=== PATIENT | female | born 1960 | race Two or more races ===

== ENCOUNTER 2020-07-25 08:16 | Outpatient (REF) | payer OTHER, SELFPAY ==
[2020-07-25 08:43] LABS: MANUAL DIFF FLAG NO
[2020-07-25 08:49] LABS: Basophils Percent Auto 0.2 % (0-2); Eosinophils Absolute Auto 0.1 X10*3/uL (0.0-0.4); Eosinophils Percent Auto 1.6 % (0-4); Hematocrit 39.6 % (37-47); Hemoglobin 12.4 g/dl (12.0-16.0); Imm Gran Abs Auto 0.01 X10*3/uL (0.00-0.03); Imm Gran Pct Auto 0.2 % (0.0-0.4); Lymphocytes Absolute Auto 1.7 X10*3/uL (1.2-4.9); Lymphocytes Percent Auto 29.7 % (20-40); Mean Corpuscular HGB Conc 31.3 g/dl (31.0-35.0); Mean Corpuscular Hemoglobin 25.8 pg (27.0-33.0); Mean Corpuscular Volume 82.3 fL (80-98); Monocytes Absolute Auto 0.4 X10*3/uL (0.1-1.2); Monocytes Percent Auto 6.3 % (2-11); Neutrophils Absolute Auto 3.6 X10*3/uL (2.0-8.3); Platelet Count 236 X10*3/uL (160-400); Red Blood Count 4.81 X10*6/uL (4.20-5.50); Red Cell Distribution Width 12.8 % (11.0-16.0); White Blood Count 5.7 X10*3/uL (4.8-10.8)
[2020-07-25 08:52] LABS: Glucose Urine UA NEG (NEG); Leukocyte Esterase Urine NEG (NEG); Nitrite Urine NEG (NEG); PH 5.5 (5.0-8.0); Specific Gravity - Urine >= 1.030 (1.005-1.025); Urine Blood NEG (NEG); Urine Ketones NEG (NEG); Urine Protein NEG (NEG-TRACE)
[2020-07-25 08:58] LABS: Appearance Urine CLEAR; Color Urine YELLOW; Estimated Average Glucose 154 mg/dL
[2020-07-25 09:01] LABS: RBC Urine 0 /HPF (0); Squamous Epithelial Cell Urine TRACE /LPF; WBC Urine 0 /HPF (0-4)
[2020-07-25 09:11] LABS: Alanine Aminotransferase 16 U/L (0-31); Albumin Level 4.5 g/dL (3.5-5.0); Alkaline Phosphatase 96 U/L (39-117); Anion Gap 13 (12-20); Aspartate Amino Transferase 14 U/L (5-31); Bilirubin Total 0.5 mg/dL (0.0-1.0); Blood Urea Nitrogen 18 mg/dL (9-16); Calcium 9.5 mg/dL (8.4-10.2); Carbon Dioxide 29 mmol/L (22-29); Chloride 103 mmol/L (96-108); Cholesterol 188 mg/dL; Estimated Glomerular Filt Rate > 60; Glucose Fasting 142 mg/dL (60-99); HDL Cholesterol 61 mg/dL; LDL Cholesterol Calculated 113 mg/dl; Potassium 4.1 mmol/l (3.3-5.1); Sodium 141 mmol/L (135-145); Total Protein 7.8 g/dL (6.5-8.0); Triglycerides 74 mg/dL
[2020-07-25 09:14] LABS: Creatinine Urine 119.98 mg/dL; Microalbum/Creatinine Ratio Ur 57.5 ug/mg cr
[2020-07-25 09:34] LABS: TSH reflex Free T4 0.29 mIU/mL (0.32-4.0)
[2020-07-25 10:46] LABS: Free T4 (Free Thyroxine) 1.27 ng/dL (0.71-1.85)
== END 2020-07-25 08:17 | disposition home or self-care (01) ==
LOC: HO.LAB 08:16
PROVIDERS: PCP Internal Medicine; Visit Provider Internal Medicine
DX: E78.5 Hyperlipidemia, unspecified (principal); E11.9 Type 2 diabetes mellitus without complications; I10 Essential (primary) hypertension; R80.9 Proteinuria, unspecified; R60.0 Localized edema; F32.9 Major depressive disorder, single episode, unspecified; E66.9 Obesity, unspecified
CPT/HCPCS: 36415; 80053; 80061; 81001; 82043; 83036; 84439; 84443; 85025

== ENCOUNTER 2020-08-20 09:54 | Outpatient (REF) | payer OTHER, SELFPAY ==
[2020-08-25 02:32] LABS: HPV mRNA E6/E7 rflx Not Detected (Not Detected)
== END 2020-08-20 09:55 | disposition home or self-care (01) ==
LOC: HO.LAB 09:54
PROVIDERS: PCP Internal Medicine; Visit Provider Obstetrics & Gynecology
DX: Z01.419 Encounter for gynecological examination (general) (routine) without abnormal findings (principal)
CPT/HCPCS: 36415; 87624; 88142

== ENCOUNTER 2020-09-17 10:43 | Outpatient (REF) | payer OTHER, SELFPAY ==
--- NOTE | 2020-09-17 11:09 | XR_ITS ---
EXAMINATION: XR KNEE, BILATERAL XR KNEE, LEFT CLINICAL INFORMATION: Pain in the left knee COMPARISON: 09/18/2017 TECHNIQUE: AP standing view of both knees. Lateral and sunrise views of the left knee. FINDINGS: Left knee: No fracture or subluxation. Compartmental joint spaces are maintained. No joint effusion. The soft tissues are unremarkable. Right knee: On this frontal view there is no fracture or subluxation. Medial and lateral compartmental joint spaces are maintained. The soft tissues are unremarkable. XR/XR knee LT 2V IMPRESSION: Unremarkable appearance of both knees.
--- NOTE | 2020-09-17 11:09 | XR_ITS ---
EXAMINATION: XR KNEE, BILATERAL XR KNEE, LEFT CLINICAL INFORMATION: Pain in the left knee COMPARISON: 09/18/2017 TECHNIQUE: AP standing view of both knees. Lateral and sunrise views of the left knee. FINDINGS: Left knee: No fracture or subluxation. Compartmental joint spaces are maintained. No joint effusion. The soft tissues are unremarkable. Right knee: On this frontal view there is no fracture or subluxation. Medial and lateral compartmental joint spaces are maintained. The soft tissues are unremarkable. XR/XR knee standing BI IMPRESSION: Unremarkable appearance of both knees.
== END 2020-09-17 10:44 | disposition home or self-care (01) ==
LOC: HO.HOSX 10:43
PROVIDERS: PCP Internal Medicine; Visit Provider Physician Assistant
DX: M25.562 Pain in left knee (principal)
CPT/HCPCS: 73560; 73565

== ENCOUNTER 2020-10-19 15:11 | Outpatient (REF) | payer OTHER, SELFPAY ==
--- NOTE | ~2020-10-19 | MM_ITS ---
EXAMINATION: MM SCREENING DIGITAL BREAST TOMOSYNTHESIS, BILATERAL CLINICAL INFORMATION: Screening. Asymptomatic. The lifetime risk of breast cancer based on the Tyrer-Cuzick Model is 6%. COMPARISON: Mammography: 10/14/2019, 10/08/2018, 08/22/2017 TECHNIQUE: Digital breast tomosynthesis is performed in both the craniocaudal and mediolateral oblique views along with computer-aided detection (CAD). Synthesized 2D images are generated from the tomosynthesis. Additional exaggerated medial left CC view is provided. FINDINGS: There are scattered areas of fibroglandular density (ACR BI-RADS breast composition Category b). There are no significant masses, abnormal calcifications, or other abnormalities. Parenchymal pattern is similar to prior studies. No developing density. Mild prominence right draining vein, stable. The axilla and skin contours are unremarkable. MM/MM tomosynthesis screening BI IMPRESSION: No significant changes from prior studies. ASSESSMENT: BI-RADS 2: Benign RECOMMENDATION: Routine annual mammography screening. This patient's information was entered into a reminder system with a target due date for their next mammogram.
== END 2020-10-19 15:12 | disposition home or self-care (01) ==
LOC: HO.MAMMO 15:11
PROVIDERS: PCP Internal Medicine; Visit Provider Internal Medicine
DX: Z12.31 Encounter for screening mammogram for malignant neoplasm of breast (principal)
CPT/HCPCS: 77063; 77067

== ENCOUNTER 2020-12-12 07:18 | Outpatient (REF) | payer OTHER, SELFPAY ==
[2020-12-12 08:16] LABS: MANUAL DIFF FLAG NO
[2020-12-12 08:20] LABS: Basophils Percent Auto 0.2 % (0-2); Eosinophils Absolute Auto 0.1 X10*3/uL (0.0-0.4); Eosinophils Percent Auto 2.1 % (0-4); Hemoglobin 11.9 g/dl (12.0-16.0); Imm Gran Abs Auto 0.01 X10*3/uL (0.00-0.03); Imm Gran Pct Auto 0.2 % (0.0-0.4); Lymphocytes Absolute Auto 1.6 X10*3/uL (1.2-4.9); Lymphocytes Percent Auto 31.5 % (20-40); Mean Corpuscular HGB Conc 31.3 g/dl (31.0-35.0); Mean Corpuscular Hemoglobin 25.8 pg (27.0-33.0); Mean Corpuscular Volume 82.4 fL (80-98); Mean Platelet Volume 10.1 fL (9.4-12.3); Monocytes Absolute Auto 0.4 X10*3/uL (0.1-1.2); Monocytes Percent Auto 6.8 % (2-11); Neutrophils Absolute Auto 3.1 X10*3/uL (2.0-8.3); Neutrophils Percent Auto 59.2 % (45-73); Platelet Count 228 X10*3/uL (160-400); Red Blood Count 4.61 X10*6/uL (4.20-5.50); Red Cell Distribution Width 12.8 % (11.0-16.0); White Blood Count 5.2 X10*3/uL (4.8-10.8)
[2020-12-12 08:41] LABS: Glucose Urine UA NEG (NEG); Leukocyte Esterase Urine NEG (NEG); Nitrite Urine NEG (NEG); Specific Gravity - Urine 1.025 (1.005-1.025); Urine Blood NEG (NEG); Urine Ketones NEG (NEG); Urine Protein NEG (NEG-TRACE)
[2020-12-12 08:45] LABS: Alanine Aminotransferase 17 U/L (0-31); Albumin Level 4.4 g/dL (3.5-5.0); Alkaline Phosphatase 94 U/L (39-117); Anion Gap 17 (12-20); Aspartate Amino Transferase 16 U/L (5-31); Bilirubin Total 0.5 mg/dL (0.0-1.0); Blood Urea Nitrogen 18 mg/dL (9-16); Calcium 9.5 mg/dL (8.4-10.2); Carbon Dioxide 26 mmol/L (22-29); Chloride 104 mmol/L (96-108); Cholesterol 187 mg/dL; Estimated Glomerular Filt Rate > 60; Glucose Fasting 160 mg/dL (60-99); HDL Cholesterol 55 mg/dL; LDL Cholesterol Calculated 114 mg/dl; Potassium 4.5 mmol/L (3.3-5.1); Sodium 142 mmol/L (135-145); Total Protein 7.6 g/dL (6.5-8.0); Triglycerides 91 mg/dL
[2020-12-12 08:47] LABS: Appearance Urine CLEAR; Color Urine YELLOW
[2020-12-12 08:56] LABS: TSH reflex Free T4 0.36 uIU/mL (0.32-4.0)
[2020-12-12 09:08] LABS: Creatinine Urine 114.91 mg/dL; Microalbum/Creatinine Ratio Ur 25.2 ug/mg cr
== END 2020-12-12 07:19 | disposition home or self-care (01) ==
LOC: HO.LAB 07:18
PROVIDERS: PCP Internal Medicine; Visit Provider Internal Medicine
DX: I10 Essential (primary) hypertension (principal); E78.00 Pure hypercholesterolemia, unspecified; E11.9 Type 2 diabetes mellitus without complications; E66.9 Obesity, unspecified
CPT/HCPCS: 36415; 80053; 80061; 81003; 82043; 84443; 85025

== ENCOUNTER 2021-06-19 08:04 | Outpatient (REF) | payer OTHER, SELFPAY ==
[2021-06-19 08:13] LABS: MANUAL DIFF FLAG NO
[2021-06-19 09:36] LABS: Basophils Percent Auto 0.2 % (0-2); Eosinophils Absolute Auto 0.1 X10*3/uL (0.0-0.4); Eosinophils Percent Auto 1.8 % (0-4); Hematocrit 39.3 % (37.0-47.0); Hemoglobin 12.3 g/dl (12.0-16.0); Imm Gran Abs Auto 0.01 X10*3/uL (0.00-0.03); Imm Gran Pct Auto 0.2 % (0.0-0.4); Lymphocytes Absolute Auto 1.7 X10*3/uL (1.2-4.9); Lymphocytes Percent Auto 30.7 % (20-40); Mean Corpuscular HGB Conc 31.3 g/dl (31.0-35.0); Mean Corpuscular Hemoglobin 25.8 pg (27.0-33.0); Mean Corpuscular Volume 82.4 fL (80.0-98.0); Mean Platelet Volume 10.3 fL (9.4-12.3); Monocytes Absolute Auto 0.4 X10*3/uL (0.1-1.2); Monocytes Percent Auto 6.9 % (2-11); Neutrophils Absolute Auto 3.3 x10*3/uL (2.0-8.3); Neutrophils Percent Auto 60.2 % (45-73); Platelet Count 244 X10*3/uL (160-400); Red Blood Count 4.77 X10*6/uL (4.20-5.50); Red Cell Distribution Width 12.6 % (11.0-16.0); White Blood Count 5.5 X10*3/uL (4.8-10.8)
[2021-06-19 09:37] LABS: Appearance Urine CLEAR; Color Urine YELLOW; Glucose Urine UA NEG (NEG); Leukocyte Esterase Urine NEG (NEG); Nitrite Urine NEG (NEG); Specific Gravity - Urine >= 1.030 (1.005-1.025); Urine Blood NEG (NEG); Urine Ketones NEG (NEG); Urine Protein TRACE MG/DL (NEG-TRACE)
[2021-06-19 09:40] LABS: Estimated Average Glucose 177 mg/dL; Hemoglobin A1C 198.1791 umol/L; Hemoglobin A1c % 7.8 %
[2021-06-19 09:46] LABS: Alanine Aminotransferase 21 U/L (0-31); Albumin Level 4.5 g/dL (3.5-5.0); Alkaline Phosphatase 93 U/L (39-117); Anion Gap 11 (12-20); Aspartate Amino Transferase 16 U/L (5-31); Bilirubin Total 0.4 mg/dL (0.0-1.0); Blood Urea Nitrogen 16 mg/dL (9-16); Calcium 9.4 mg/dL (8.4-10.2); Carbon Dioxide 30 mmol/L (22-29); Chloride 104 mmol/L (96-108); Cholesterol 191 mg/dL; Estimated Glomerular Filt Rate > 60; Glucose Fasting 153 mg/dL (60-99); HDL Cholesterol 56 mg/dL; LDL Cholesterol Calculated 113 mg/dl; Potassium 4.1 mmol/L (3.3-5.1); Sodium 141 mmol/L (135-145); Total Protein 7.6 g/dL (6.5-8.0); Triglycerides 114 mg/dL
[2021-06-19 09:52] LABS: Creatinine Urine 161.31 mg/dL; Microalbum/Creatinine Ratio Ur 76.8 ug/mg cr
[2021-06-19 10:04] LABS: TSH reflex Free T4 0.49 uIU/mL (0.32-4.0)
== END 2021-06-19 08:05 | disposition home or self-care (01) ==
LOC: HO.LAB 08:04
PROVIDERS: PCP Internal Medicine; Visit Provider Internal Medicine
DX: E11.9 Type 2 diabetes mellitus without complications (principal); E78.00 Pure hypercholesterolemia, unspecified; I10 Essential (primary) hypertension; E66.9 Obesity, unspecified
CPT/HCPCS: 36415; 80053; 80061; 81003; 82043; 83036; 84443; 85025

== ENCOUNTER → 2021-09-22 08:10 | Outpatient (BNVA) | payer OTHER, SELFPAY | PROVIDERS: PCP Internal Medicine; Visit Provider Obstetrics & Gynecology ==

== ENCOUNTER 2021-10-25 12:47 | Outpatient (REF) | payer OTHER, SELFPAY ==
--- NOTE | ~2021-10-25 | MM_ITS ---
EXAMINATION: MM SCREENING DIGITAL BREAST TOMOSYNTHESIS, BILATERAL CLINICAL INFORMATION: Screening. Asymptomatic. The lifetime risk of breast cancer based on the Tyrer-Cuzick Model is 9%. COMPARISON: Mammography: 10/19/2020, 11/01/2019, 10/08/2018 TECHNIQUE: Digital breast tomosynthesis is performed in both the craniocaudal and mediolateral oblique views along with computer-aided detection (CAD). Synthesized 2D images are generated from the tomosynthesis. FINDINGS: There are scattered areas of fibroglandular density (ACR BI-RADS breast composition Category b). There are no significant masses, abnormal calcifications, or other abnormalities. Parenchymal pattern is similar to prior studies. No developing density. Mildly prominent right screening brain stable. The axilla are unremarkable. MM/MM tomosynthesis screening BI IMPRESSION: No mammographic evidence of malignancy. ASSESSMENT: BI-RADS 2: Benign RECOMMENDATION: Routine annual mammography screening. This patient's information was entered into a reminder system with a target due date for their next mammogram.
== END 2021-10-25 12:48 | disposition home or self-care (01) ==
LOC: HO.MAMMO 12:47
PROVIDERS: Visit Provider Internal Medicine
DX: Z12.31 Encounter for screening mammogram for malignant neoplasm of breast (principal)
CPT/HCPCS: 77063; 77067

== ENCOUNTER → 2021-11-03 13:38 | Outpatient (BNVA) | payer OTHER, SELFPAY | PROVIDERS: PCP Internal Medicine; Visit Provider Physician Assistant | DX: M17.11 Unilateral primary osteoarthritis, right knee (principal) | CPT/HCPCS: 20610; J1040 ==

== ENCOUNTER 2021-12-11 07:44 | Outpatient (REF) | payer OTHER, SELFPAY ==
[2021-12-11 08:06] LABS: MANUAL DIFF FLAG NO
[2021-12-11 08:35] LABS: Appearance Urine CLEAR; Color Urine YELLOW; Glucose Urine UA NEG (NEG); Leukocyte Esterase Urine NEG (NEG); Nitrite Urine NEG (NEG); Specific Gravity - Urine >= 1.030 (1.005-1.025); UACC Culture Trigger NO; Urine Blood NEG (NEG); Urine Ketones NEG (NEG); Urine Protein 2+ MG/DL (NEG-TRACE)
[2021-12-11 08:40] LABS: Basophils Percent Auto 0.2 % (0-2); Eosinophils Absolute Auto 0.1 X10*3/uL (0.0-0.4); Eosinophils Percent Auto 1.5 % (0-4); Hematocrit 39.4 % (37.0-47.0); Hemoglobin 12.6 g/dl (12.0-16.0); Imm Gran Abs Auto 0.01 X10*3/uL (0.00-0.03); Imm Gran Pct Auto 0.2 % (0.0-0.4); Lymphocytes Absolute Auto 1.7 X10*3/uL (1.2-4.9); Lymphocytes Percent Auto 28.7 % (20-40); Mean Corpuscular Volume 81.2 fL (80.0-98.0); Mean Platelet Volume 9.9 fL (9.4-12.3); Monocytes Absolute Auto 0.4 X10*3/uL (0.1-1.2); Monocytes Percent Auto 6.5 % (2-11); Neutrophils Absolute Auto 3.7 x10*3/uL (2.0-8.3); Neutrophils Percent Auto 62.9 % (45-73); Platelet Count 244 X10*3/uL (160-400); Red Blood Count 4.85 X10*6/uL (4.20-5.50); Red Cell Distribution Width 12.9 % (11.0-16.0); White Blood Count 5.8 X10*3/uL (4.8-10.8)
[2021-12-11 09:20] LABS: Alanine Aminotransferase 19 U/L (0-31); Albumin Level 4.5 g/dL (3.5-5.0); Alkaline Phosphatase 99 U/L (39-117); Anion Gap 16 (12-20); Aspartate Amino Transferase 16 U/L (5-31); Bilirubin Total 0.7 mg/dL (0.0-1.0); Blood Urea Nitrogen 17 mg/dL (9-16); Calcium 10.1 mg/dL (8.4-10.2); Carbon Dioxide 28 mmol/L (22-29); Chloride 102 mmol/L (96-108); Cholesterol 206 mg/dL; Estimated Glomerular Filt Rate > 60; Glucose Fasting 169 mg/dL (60-99); HDL Cholesterol 63 mg/dL; LDL Cholesterol Calculated 125 mg/dl; Potassium 4.7 mmol/L (3.3-5.1); Sodium 141 mmol/L (135-145); Total Protein 7.8 g/dL (6.5-8.0); Triglycerides 94 mg/dL
[2021-12-11 09:25] LABS: RBC Urine 0-2 /HPF (0); UACC CULT YES
[2021-12-11 09:26] LABS: Mucus Urine 2+ /LPF; Renal Epithelial Cells Urine 1+ /LPF; Squamous Epithelial Cell Urine 2+ /LPF
[2021-12-11 09:28] LABS: Estimated Average Glucose 171 mg/dL; Hemoglobin A1c % 7.6 %
[2021-12-11 09:43] LABS: TSH reflex Free T4 0.34 uIU/mL (0.32-4.0); Vitamin D 25-OH Total 26.9 ng/mL (>30)
[2021-12-11 10:07] LABS: Creatinine Urine 232.14 mg/dL; Microalbum/Creatinine Ratio Ur 299.8 ug/mg cr
== END 2021-12-11 07:45 | disposition home or self-care (01) ==
LOC: HO.LAB 07:44
PROVIDERS: PCP Internal Medicine; Visit Provider Internal Medicine
DX: E11.9 Type 2 diabetes mellitus without complications (principal); E78.00 Pure hypercholesterolemia, unspecified; E55.9 Vitamin D deficiency, unspecified; I10 Essential (primary) hypertension
CPT/HCPCS: 36415; 80053; 80061; 81001; 82043; 82306; 83036; 84443; 85025; 87086

== ENCOUNTER 2022-04-23 07:33 | Outpatient (REF) | payer OTHER, SELFPAY ==
[2022-04-23 07:55] LABS: MANUAL DIFF FLAG NO
[2022-04-23 08:14] LABS: Basophils Percent Auto 0.2 % (0-2); Eosinophils Absolute Auto 0.1 X10*3/uL (0.0-0.4); Eosinophils Percent Auto 1.7 % (0-4); Hematocrit 38.2 % (37.0-47.0); Hemoglobin 12.4 g/dl (12.0-16.0); Imm Gran Abs Auto 0.01 X10*3/uL (0.00-0.03); Imm Gran Pct Auto 0.2 % (0.0-0.4); Lymphocytes Absolute Auto 1.5 X10*3/uL (1.2-4.9); Lymphocytes Percent Auto 28.1 % (20-40); Mean Corpuscular HGB Conc 32.5 g/dl (31.0-35.0); Mean Corpuscular Hemoglobin 26.2 pg (27.0-33.0); Mean Corpuscular Volume 80.6 fL (80.0-98.0); Mean Platelet Volume 9.9 fL (9.4-12.3); Monocytes Absolute Auto 0.3 X10*3/uL (0.1-1.2); Monocytes Percent Auto 6.4 % (2-11); Neutrophils Absolute Auto 3.4 x10*3/uL (2.0-8.3); Neutrophils Percent Auto 63.4 % (45-73); Platelet Count 233 X10*3/uL (160-400); Red Blood Count 4.74 X10*6/uL (4.20-5.50); Red Cell Distribution Width 12.8 % (11.0-16.0); White Blood Count 5.3 X10*3/uL (4.8-10.8)
[2022-04-23 08:47] LABS: Appearance Urine Clear; Color Urine Yellow; Glucose Urine UA Negative (Negative); Leukocyte Esterase Urine Negative (Negative); Nitrite Urine Negative (Negative); PH 5.5 (5.0-9.0); Specific Gravity - Urine 1.025 (1.005-1.025); Urine Blood Negative (Negative); Urine Ketones Trace mg/dL (Negative); Urine Protein 100 (2+) mg/dL (Neg-Trace)
[2022-04-23 08:49] LABS: Alanine Aminotransferase 22 U/L (0-31); Albumin Level 4.4 g/dL (3.5-5.0); Alkaline Phosphatase 93 U/L (39-117); Anion Gap 16 (12-20); Aspartate Amino Transferase 16 U/L (5-31); Bilirubin Total 0.5 mg/dL (0.0-1.0); Blood Urea Nitrogen 17 mg/dL (9-16); Calcium 9.7 mg/dL (8.4-10.2); Carbon Dioxide 27 mmol/L (22-29); Chloride 103 mmol/L (96-108); Cholesterol 189 mg/dL; Estimated Glomerular Filt Rate > 60; Glucose Fasting 182 mg/dL (60-99); HDL Cholesterol 56 mg/dL; LDL Cholesterol Calculated 113 mg/dl; Potassium 4.2 mmol/L (3.3-5.1); Sodium 142 mmol/L (135-145); Total Protein 7.6 g/dL (6.5-8.0); Triglycerides 104 mg/dL
[2022-04-23 08:52] LABS: Bacteria Urine None Seen (None Seen); Hyaline Casts Urine 0-2 /LPF (0-2); RBC Urine 0-2 /HPF (0-2); WBC Urine 0-5 /HPF (0-5)
[2022-04-23 09:11] LABS: TSH reflex Free T4 0.27 uIU/mL (0.32-4.0); Vitamin D 25-OH Total 30.5 ng/mL (>30)
[2022-04-23 09:18] LABS: Estimated Average Glucose 171 mg/dL; Hemoglobin A1c % 7.6 %
[2022-04-23 09:21] LABS: Creatinine Urine 214.12 mg/dL; Microalbum/Creatinine Ratio Ur 193.8 ug/mg cr
[2022-04-23 09:43] LABS: Free T4 (Free Thyroxine) 1.31 ng/dL (0.71-1.85)
== END 2022-04-23 07:34 | disposition home or self-care (01) ==
LOC: HO.LAB 07:33
PROVIDERS: PCP Internal Medicine; Visit Provider Internal Medicine
DX: I10 Essential (primary) hypertension (principal); E55.9 Vitamin D deficiency, unspecified; E78.00 Pure hypercholesterolemia, unspecified; E11.9 Type 2 diabetes mellitus without complications
CPT/HCPCS: 36415; 80053; 80061; 81001; 82043; 82306; 83036; 84439; 84443; 85025

== ENCOUNTER 2022-10-26 14:11 | Outpatient (REF) | payer OTHER, SELFPAY ==
--- NOTE | ~2022-10-26 | MM_ITS ---
EXAMINATION: MM SCREENING DIGITAL BREAST TOMOSYNTHESIS, BILATERAL CLINICAL INFORMATION: Screening. Asymptomatic. The lifetime risk of breast cancer based on the Tyrer-Cuzick Model is 5%. COMPARISON: Mammography: 10/25/2021, 10/19/2020, 10/14/2019 TECHNIQUE: Digital breast tomosynthesis is performed in both the craniocaudal and mediolateral oblique views along with computer-aided detection (CAD). Synthesized 2D images are generated from the tomosynthesis. FINDINGS: There are scattered areas of fibroglandular density (ACR BI-RADS breast composition Category b). There are no significant masses, abnormal calcifications, or other abnormalities. No architectural abnormality or developing density or significant change from prior studies. Probable small intramammary node node mid upper outer right breast again noted. The axilla and skin contours are unremarkable. MM/MM tomosynthesis screening BI IMPRESSION: No mammographic evidence of malignancy. ASSESSMENT: BI-RADS 2: Benign RECOMMENDATION: Routine annual mammography screening. This patient's information was entered into a reminder system with a target due date for their next mammogram.
== END 2022-10-26 14:12 | disposition home or self-care (01) ==
LOC: HO.MAMMO 14:11
PROVIDERS: PCP Internal Medicine; Visit Provider Internal Medicine
DX: Z12.31 Encounter for screening mammogram for malignant neoplasm of breast (principal)
CPT/HCPCS: 77063; 77067

== ENCOUNTER 2022-10-29 07:33 | Outpatient (REF) | payer OTHER, SELFPAY ==
[2022-10-29 08:06] LABS: MANUAL DIFF FLAG NO
[2022-10-29 08:48] LABS: Basophils Percent Auto 0.4 % (0-2); Eosinophils Absolute Auto 0.1 X10*3/uL (0.0-0.4); Eosinophils Percent Auto 1.7 % (0-4); Hematocrit 37.8 % (37.0-47.0); Hemoglobin 11.9 g/dl (12.0-16.0); Imm Gran Abs Auto 0.02 X10*3/uL (0.00-0.03); Imm Gran Pct Auto 0.4 % (0.0-0.4); Lymphocytes Absolute Auto 1.5 X10*3/uL (1.2-4.9); Lymphocytes Percent Auto 27.6 % (20-40); Mean Corpuscular HGB Conc 31.5 g/dl (31.0-35.0); Mean Corpuscular Hemoglobin 25.8 pg (27.0-33.0); Mean Corpuscular Volume 81.8 fL (80.0-98.0); Mean Platelet Volume 10.2 fL (9.4-12.3); Monocytes Absolute Auto 0.3 X10*3/uL (0.1-1.2); Monocytes Percent Auto 6.3 % (2-11); Neutrophils Absolute Auto 3.4 x10*3/uL (2.0-8.3); Neutrophils Percent Auto 63.6 % (45-73); Platelet Count 236 X10*3/uL (160-400); Red Blood Count 4.62 X10*6/uL (4.20-5.50); Red Cell Distribution Width 12.9 % (11.0-16.0); White Blood Count 5.4 X10*3/uL (4.8-10.8)
[2022-10-29 09:02] LABS: Appearance Urine Clear; Color Urine Yellow; Glucose Urine UA Negative (Negative); Leukocyte Esterase Urine Negative (Negative); Nitrite Urine Negative (Negative); PH 5.5 (5.0-9.0); UMIC TRIGGER UACC YES; Urine Blood Negative (Negative); Urine Ketones Negative (Negative); Urine Protein 30 (1+) mg/dL (Neg-Trace)
[2022-10-29 09:08] LABS: Bacteria Urine None Seen (None Seen); Hyaline Casts Urine 0-2 /LPF (0-2); RBC Urine 0-2 /HPF (0-2); Squamous Epithelial Cell Urine 0-2 /HPF (0-2); WBC Urine 0-5 /HPF (0-5)
[2022-10-29 09:16] LABS: Estimated Average Glucose 194 mg/dL; Hemoglobin A1c % 8.4 %
[2022-10-29 09:27] LABS: Creatinine Urine 114.75 mg/dL
[2022-10-29 09:29] LABS: Alanine Aminotransferase 25 U/L (0-31); Albumin Level 4.4 g/dL (3.5-5.0); Alkaline Phosphatase 89 U/L (39-117); Anion Gap 17 (12-20); Aspartate Amino Transferase 18 U/L (5-31); Bilirubin Total 0.5 mg/dL (0.0-1.0); Blood Urea Nitrogen 18 mg/dL (9-16); Calcium 9.4 mg/dL (8.4-10.2); Carbon Dioxide 25 mmol/L (22-29); Chloride 104 mmol/L (96-108); Cholesterol 187 mg/dL; Estimated Glomerular Filt Rate > 60; Glucose Fasting 187 mg/dL (60-99); HDL Cholesterol 55 mg/dL; LDL Cholesterol Calculated 113 mg/dl; Potassium 4.3 mmol/L (3.3-5.1); Sodium 142 mmol/L (135-145); Total Protein 7.4 g/dL (6.5-8.0); Triglycerides 95 mg/dL
[2022-10-29 09:37] LABS: TSH reflex Free T4 0.24 uIU/mL (0.32-4.0); Vitamin D 25-OH Total 40.2 ng/mL (>30)
[2022-10-29 10:08] LABS: Free T4 (Free Thyroxine) 1.11 ng/dL (0.71-1.85)
== END 2022-10-29 07:34 | disposition home or self-care (01) ==
LOC: HO.LAB 07:33
PROVIDERS: PCP Internal Medicine; Visit Provider Internal Medicine
DX: E78.00 Pure hypercholesterolemia, unspecified (principal); I10 Essential (primary) hypertension; E11.9 Type 2 diabetes mellitus without complications; E55.9 Vitamin D deficiency, unspecified
CPT/HCPCS: 36415; 80053; 80061; 81001; 81003; 82043; 82306; 83036; 84439; 84443; 85025

== ENCOUNTER → 2022-11-30 09:17 | Outpatient (BNVA) | payer OTHER, SELFPAY | PROVIDERS: PCP Internal Medicine; Visit Provider Obstetrics & Gynecology | DX: Z13.89 Encounter for screening for other disorder (principal) ==

== ENCOUNTER 2023-04-14 08:17 | Outpatient (REF) | payer OTHER, SELFPAY ==
[2023-04-14 08:30] LABS: MANUAL DIFF FLAG NO
[2023-04-14 08:35] LABS: Basophils Percent Auto 0.4 % (0-2); Eosinophils Absolute Auto 0.1 X10*3/uL (0.0-0.4); Eosinophils Percent Auto 1.5 % (0-4); Hematocrit 38.1 % (37.0-47.0); Hemoglobin 12.1 g/dl (12.0-16.0); Imm Gran Abs Auto 0.01 X10*3/uL (0.00-0.03); Imm Gran Pct Auto 0.2 % (0.0-0.4); Lymphocytes Absolute Auto 1.5 X10*3/uL (1.2-4.9); Lymphocytes Percent Auto 27.3 % (20-40); Mean Corpuscular HGB Conc 31.8 g/dl (31.0-35.0); Mean Corpuscular Volume 81.9 fL (80.0-98.0); Mean Platelet Volume 9.9 fL (9.4-12.3); Monocytes Absolute Auto 0.4 X10*3/uL (0.1-1.2); Monocytes Percent Auto 6.6 % (2-11); Neutrophils Absolute Auto 3.5 x10*3/uL (2.0-8.3); Platelet Count 201 X10*3/uL (160-400); Red Blood Count 4.65 X10*6/uL (4.20-5.50); Red Cell Distribution Width 12.9 % (11.0-16.0); White Blood Count 5.5 X10*3/uL (4.8-10.8)
[2023-04-14 08:42] LABS: Estimated Average Glucose 183 mg/dL
[2023-04-14 10:02] LABS: Appearance Urine Clear; Color Urine Yellow; Glucose Urine UA Negative (Negative); Leukocyte Esterase Urine Negative (Negative); Nitrite Urine Negative (Negative); PH 5.5 (5.0-9.0); Specific Gravity - Urine 1.025 (1.005-1.025); UMIC TRIGGER UACC YES; Urine Blood Negative (Negative); Urine Ketones Negative (Negative); Urine Protein 30 (1+) mg/dL (Neg-Trace)
[2023-04-14 10:05] LABS: Bacteria Urine None Seen (None Seen); Hyaline Casts Urine 0-2 /LPF (0-2); RBC Urine 0-2 /HPF (0-2); WBC Urine 0-5 /HPF (0-5)
[2023-04-14 10:34] LABS: Alanine Aminotransferase 24 U/L (0-31); Albumin Level 4.4 g/dL (3.5-5.0); Alkaline Phosphatase 87 U/L (39-117); Anion Gap 15 (12-20); Aspartate Amino Transferase 19 U/L (5-31); Bilirubin Total 0.4 mg/dL (0.0-1.0); Blood Urea Nitrogen 16 mg/dL (9-16); Calcium 9.9 mg/dL (8.4-10.2); Carbon Dioxide 24 mmol/L (22-29); Chloride 105 mmol/L (96-108); Cholesterol 171 mg/dL (<200); Estimated Glomerular Filt Rate > 60; Glucose Fasting 187 mg/dL (60-99); HDL Cholesterol 53 mg/dL (>40); LDL Cholesterol Calculated 94 mg/dL (<100); Potassium 4.3 mmol/L (3.3-5.1); Sodium 140 mmol/L (135-145); Total Protein 7.8 g/dL (6.5-8.0); Triglycerides 123 mg/dL (<150)
[2023-04-14 10:41] LABS: TSH reflex Free T4 0.42 uIU/mL (0.32-4.0); Vitamin D 25-OH Total 30.5 ng/mL (>30)
[2023-04-14 10:52] LABS: Microalbum/Creatinine Ratio Ur 122.4 ug/mg cr (<30)
== END 2023-04-14 08:18 | disposition home or self-care (01) ==
LOC: HO.LAB 08:17
PROVIDERS: PCP Internal Medicine; Visit Provider Internal Medicine
DX: I10 Essential (primary) hypertension (principal); E78.00 Pure hypercholesterolemia, unspecified; E55.9 Vitamin D deficiency, unspecified; E11.9 Type 2 diabetes mellitus without complications
CPT/HCPCS: 36415; 80053; 80061; 81001; 81003; 82043; 82306; 82570; 83036; 84443; 85025

== ENCOUNTER 2023-04-19 14:51 | Outpatient (AMB) | payer OTHER, SELFPAY ==
[2023-04-19 15:16] VITALS: BP 122/80; PULSE 81; O2SAT 96; BMI 32.0
--- NOTE | 2023-04-19 15:16 | MHC.PC.OV ---
Vital Signs 04/19/23 15:16 Height 5 ft 5 in Weight 192 lb 4 oz BMI 32.0 BP 122/80 Blood Pressure Location Lt brachial Position Sitting Pulse 81 Pulse Source Pulse Oximeter Pulse Oximetry (%) 96 Oxygen Delivery Method Room Air Intake Visit Reasons: DM, HTN, hyperlipidemia Documentation Supervisor Required: No Accompanied by: Self / Same As Patient Allergies lisinopril Allergy (Unknown, Verified 04/19/23 16:20) severe coughing linagliptin [From Tradjenta] Adverse Reaction (Severe, Verified 04/19/23 16:21) hives/blisters, chest pains, diarrhea Medication List - Last Reconciled 04/19/23 by Herson Healy MD atorvastatin 40 mg PO BEDTIME 90 days losartan 25 mg PO DAILY 90 days metformin ER 1,000 mg (2 x 500 mg) PO BID 90 days sertraline 100 mg PO DAILY 90 days Tobacco use date assessed: 04/19/23 Dental Screening Dental Screen Date: 04/19/23 Did you have a dental visit in the last 12 months?: No Did you have a dental problem in the last 6 months where you did not have access to dental care?: No Was dental information given to patient?: No HPI DM, HTN, hyperlipidemia HPI Details Patient comes in today for her follow up visit States that she currently feels okay Relates that she developed side effects from the last diabetes Rx that we prescribed for her (had diarrhea, chest tight, hives/blisters while on Tradjenta) and she stopped taking Tradjenta after being on it for a couple of weeks Notes that all of her side effects gradually cleared up once she stopped taking her Tradjenta States that she has been trying hard to watch her diet and eating better/healthier since She denies any headaches or dizziness Denies any chest pains, no SOB No nausea/vomiting, no abdominal pain No change in bowel habits noted Needs all of her Rx refilled Had her follow up labs done a few days ago - to discuss her results [facility] Medical History Benign essential hypertension Depression Diabetes mellitus Lichen sclerosus Obesity (BMI 30-39.9) Primary osteoarthritis of knee Pure hypercholesterolemia Surgical History History of laparoscopic cholecystectomy Family History Father Diabetes Mother Hypertension Diabetes Social History Housing: Apartment Alcohol intake: never Patient Tobacco Use Status: Never used Tobacco e-Cigarette/Vaping Use: Never Used Second Hand Smoke Exposure: No service: No Current occupational status: employed Cognitive needs: No Hearing needs: No Vision needs: Yes Female Reproductive History Menstrual Age of Menarche: 15 Questionnaire PHQ-9 Over the last 2 weeks, how often have you been bothered by any of the following problems? 1. Little interest or pleasure in doing things: not at all 2. Feeling down, depressed, or hopeless: not at all 3. Trouble falling or staying asleep, or sleeping too much: not at all 4. Feeling tired or having little energy: not at all 5. Poor appetite or overeating: not at all 6. Feeling bad about yourself - or that you are a failure or have let yourself or your family down: not at all 7. Trouble concentrating on things, such as reading the newspaper or watching television: not at all 8. Moving or speaking so slowly that other people could have noticed. Or the opposite - being so fidgety or restless that you have been moving around a lot more than usual: not at all 9. Thoughts that you would be better off or of hurting yourself in some way: not at all Total score: 0 Depression Screening Interpretation: Negative 23884 - PHQ-9 Billing: Yes Source: Developed by Drs. León Lawton, Charmaine Humphries, Yefri Laird and colleagues, with an educational fitz from [employer]. Thrive Questionnaire Date Thrive assessed: 04/19/23 I am a: Patient What is your living situation today?: I have a steady place to live Within the past 12 months, did the food you bought not last and you didn't have the money to get more?: Never true Within the past 12 months, did you worry whether your food would run out before you got money to buy more?: Never true Do you have trouble paying for medicines?: No Do you have trouble getting transportation to medical appointments?: No Do you have trouble paying your heating and electricity bill?: No Do you have trouble taking care of your child, family member or friend?: No Do you have trouble with day-to-day activities such as bathing, preparing meals, shopping, managing finances, etc.?: No Are you currently unemployed and looking for a job?: No Are you interested in more education?: No Please select the resources that you would like help with: None Currently or been in a relationship where the following occur: no concerns reported AUDIT C Alcohol Use Questionnaire (AUDIT-C) 1. How often do you have a drink containing alcohol?: Never 3. How often do you have six or more drinks on one occasion?: Never Total Score: 0 Score Reviewed/Action Taken: Yes TAMANNA-7 AMB Questionnaire TAMANNA-7 Date TAMANNA - 7 assessed: 04/19/23 Feeling nervous, anxious, or on edge: 0 = Not at all Not being able to stop or control worryin = Not at all Worrying too much about different things: 0 = Not at all Trouble relaxin = Not at all Being so restless that it is hard to sit still: 0 = Not at all Becoming easily annoyed or irritable: 0 = Not at all Feeling afraid as if something awful might happen: 0 = Not at all Total TAMANNA-7 score (0-4 normal; 5-9 mild; 10-14 moderate; 15-21 severe): 0 Source: Developed by Drs. León Lawton, Charmaine Humphries, Yefri Laird and colleagues, with an educational fitz from [employer]. Review of Systems Const Denies chills, Denies fatigue, Denies fever(s) and Denies headache(s) ENT Denies dysphagia, Denies dizziness, Denies otalgia, Denies headache(s), Denies neck pain, Denies odynophagia and Denies sore throat Card Denies chest pain, Denies palpitations and Denies dyspnea Resp Denies cough and Denies dyspnea GI Denies abdominal pain, Denies constipation, Denies dysphagia, Denies heartburn, Denies diarrhea, Denies nausea, Denies odynophagia and Denies vomiting Denies difficulty voiding, Denies nocturia and Denies dysuria Musc Denies back pain, Denies arthralgias and Denies neck pain Neuro Denies dizziness and Denies headache(s) Endo Denies fatigue and Denies palpitations Physical exam (Primary Care) Vital Signs: Last Vital Signs Pulse 81 04/19/23 15:16 BP 122/80 04/19/23 15:16 Pulse Ox 96 04/19/23 15:16 Oxygen Delivery Method Room Air 04/19/23 15:16 BMI result Body Mass Index 32.0 Tobacco/Smoking Status: Tobacco use Status Tobacco use date assessed 04/19/23 04/19/23 15:22 Patient Tobacco Use Status Never used Tobacco 04/19/23 15:22 e-Cigarette/Vaping Use Never Used 04/19/23 15:22 PHQ-9: PHQ-9 Score PHQ-9: Total score 0 04/19/23 15:24 Depression Screening Interpretation: Negative Thrive Assessment: Date of Thrive Assessment Date Thrive assessed 04/19/23 04/19/23 15:22 Currently or been in a relationship where the following occur: no concerns reported Const General: no acute distress and alert HENMT Ears: TM's normal bilaterally and EAC's normal Throat: Yes posterior oropharynx normal and Yes tonsils normal (no TP congestion noted) Neck Neck: Yes no lymphadenopathy and Yes supple Resp Auscultation: clear to auscultation bilaterally, no rales and no wheezes Cardio Rate: regular rate Rhythm: regular rhythm Heart sounds: no murmurs GI Palpation (GI): Soft to palpation and nontender Auscultation: normal bowel sounds Back/Spine/Pelvis Thoracic/Lumbar Spine: thoracic and lumbar spine normal to inspection Skin Rashes: no rashes Extrem General: Yes no clubbing, cyanosis or edema Results Reviewed Results Reviewed: Laboratory Tests 04/14/23 04/14/23 04/14/23 08:27 08:27 08:28 WBC 5.5 Hgb 12.1 Hct 38.1 Plt Count 201 Sodium Potassium Creatinine Estimated GFR Fasting Glucose Hemoglobin A1c % Calcium AST ALT Triglycerides Cholesterol LDL Cholesterol, Calc HDL Cholesterol 25-OH Vitamin D Total TSH Ur Specific [place] 1.025 Urine Protein 30 (1+) H Urine Glucose (UA) Negative Urine Blood Negative Microalb/Creat Ratio 122.4 H 04/14/23 04/14/23 08:28 08:28 WBC Hgb Hct Plt Count Sodium 140 Potassium 4.3 Creatinine 0.82 Estimated GFR > 60 Fasting Glucose 187 H Hemoglobin A1c % 8.0 H Calcium 9.9 AST 19 ALT 24 Triglycerides 123 Cholesterol 171 LDL Cholesterol, Calc 94 HDL Cholesterol 53 25-OH Vitamin D Total 30.5 TSH 0.42 Ur Specific [place] Urine Protein Urine Glucose (UA) Urine Blood Microalb/Creat Ratio Assessment and Plan Assessment & Plan (1) Diabetes mellitus: Code(s): E11.9 - Type 2 diabetes mellitus without complications Qualifiers: Diabetes mellitus type: type 2 Diabetes mellitus nursing home insulin use: without nursing home use Diabetes mellitus complication status: without complication Qualified Code(s): E11.9 - Type 2 diabetes mellitus without complications Plan: HgbA1c is at 8.0% on her labs done a few days ago (was at 8.4% a few months ago) - goal is < 7.0% Reinforced diabetic diet Continue Metformin ER 500 mg 2 tablets BID She was started on Tradjenta 5 mg Q AM a few months ago but developed side effects from the Rx (hives, chest pains, diarrhea) and she ended up stopping it after a couple of weeks; states that all of the aforementioned side effects gradually cleared up with discontinuation of the Rx She could also not tolerate Januvia 50 mg QD in the past - blood sugar kept dropping too low Will try starting her for now on Pioglitazone 15 mg QD (2) Pure hypercholesterolemia: Code(s): E78.00 - Pure hypercholesterolemia, unspecified Plan: Results of her labs done a few days ago reviewed and discussed with patient - advised that her cholesterol levels have improved significantly from previous Reinforced low cholesterol diet Continue Atorvastatin 40 mg QD Will recheck her labs and fasting lipids in 3 months for follow-up (3) Benign essential hypertension: Code(s): I10 - Essential (primary) hypertension Plan: Reinforced low sodium diet -? goal is systolic BP of at least 120 to 130 mm or less Continue Losartan 25 mg QD (4) Depression: Code(s): F32.9 - Major depressive disorder, single episode, unspecified Qualifiers: Depression Type: major depressive disorder Major depression recurrence: recurrent Active/Remission status: currently active Major depression episode severity: unspecified Qualified Code(s): F33.9 - Major depressive disorder, recurrent, unspecified Plan: Continue Sertraline 100 mg QD Follow-up with Psychiatry as scheduled -? was seeing her therapist via telehealth visits lately and advised that as she has been stable on her medication for years, she can just see her therapist only as needed from now on and can continue to just get her Rx refilled by her PCP (5) Obesity (BMI 30-39.9): Code(s): E66.9 - Obesity, unspecified Plan: Reinforced diet/exercise as tolerated/lose weight Plan Follow up in 3 months Orders: Orders Complete Blood Count Auto Diff 3 Months I10 - Essential (primary) hypertension Comprehensive [place]. Panel Fast 3 Months E78.00 - Pure hypercholesterolemia, unspecified Lipid Panel 3 Months E78.00 - Pure hypercholesterolemia, unspecified Microalbumin, Random (w Creat) 3 Months E11.9 - Type 2 diabetes mellitus without complications Hemoglobin A1c 3 Months E11.9 - Type 2 diabetes mellitus without complications TSH reflex Free T4 3 Months E78.00 - Pure hypercholesterolemia, unspecified UA CC w/rflx Micro + Cult 3 Months R30.0 - Dysuria Vitamin D 25-OH Total 3 Months E55.9 - Vitamin D deficiency, unspecified Medications: New pioglitazone 15 mg PO DAILY 90 tabs 1RF 90 days Refilled atorvastatin 40 mg PO BEDTIME 90 caps 1RF 90 days losartan 25 mg PO DAILY 90 tabs 1RF 90 days sertraline 100 mg PO DAILY 90 tabs 1RF 90 days metformin ER 1,000 mg (2 x 500 mg) PO BID 360 tabs 1RF 90 days E11.9 - Type 2 diabetes mellitus without complications Coding Level of Care Code Est Pt Level 4 (61304) Diagnoses Diabetes mellitus E11.9 Diabetes mellitus type: type 2 Diabetes mellitus nursing home insulin use: without tire center supervisor use Diabetes mellitus complication status: without complication Pure hypercholesterolemia E78.00 Benign essential hypertension I10 Depression F33.9 Depression Type: major depressive disorder Major depression recurrence: recurrent Active/Remission status: currently active Major depression episode severity: unspecified Obesity (BMI 30-39.9) E66.9
== END 2023-04-19 16:32 | disposition home or self-care (01) ==
PROVIDERS: PCP Internal Medicine; Visit Provider Internal Medicine
DX: E11.9 Type 2 diabetes mellitus without complications (principal); I10 Essential (primary) hypertension; F33.9 Major depressive disorder, recurrent, unspecified; Z68.32 Body mass index [BMI] 32.0-32.9, adult; E66.9 Obesity, unspecified; E78.00 Pure hypercholesterolemia, unspecified
CPT/HCPCS: 99214

== ENCOUNTER 2023-05-08 11:09 | Outpatient (AMB) | payer OTHER, SELFPAY ==
--- NOTE | 2023-05-08 11:55 | AM.OFFWIN_ITS ---
Intake Vital Signs 05/08/23 12:03 Height 5 ft 5 in Weight 87.203 kg BMI 32.0 BP 130/78 Blood Pressure Location Rt brachial Position Sitting Pulse 97 Pulse Source Pulse Oximeter Temp 97.1 F Temp Source Temporal Artery Scan Pulse Oximetry (%) 100 Oxygen Delivery Method Room Air Intake Visit Reasons: EST/possible strep/[phone] Intake Note: pt is here c/o sore throat for the last few days. Patient Tobacco Use Status: Never used Tobacco Allergies lisinopril Allergy (Unknown, Verified 05/08/23 11:55) severe coughing linagliptin [From Tradjenta] Adverse Reaction (Severe, Verified 05/08/23 11:55) hives/blisters, chest pains, diarrhea Do you need a note to return to daycare/school/sports/work: No HPI EST/possible strep/[phone] HPI Details Patient presents with 3 days of sore throat with exudate, chills and fatigue. She notes her son at home is positive for COVID at this time she has tested herself twice with rapid home test which has been negative both times. She denies cough, chest pain, shortness of breath difficulty breathing or GI symptoms. She notices painful to swallow but is tolerating food and fluid okay. No voice change. [facility] Medical History Benign essential hypertension Depression Diabetes mellitus Lichen sclerosus Obesity (BMI 30-39.9) Primary osteoarthritis of knee Pure hypercholesterolemia Surgical History History of laparoscopic cholecystectomy Family History Father Diabetes Mother Hypertension Diabetes Social History Housing: Apartment Alcohol intake: never Patient Tobacco Use Status: Never used Tobacco e-Cigarette/Vaping Use: Never Used Second Hand Smoke Exposure: No service: No Current occupational status: employed Cognitive needs: No Hearing needs: No Vision needs: Yes Female Reproductive History Menstrual Age of Menarche: 15 Review of Systems Const Reports as per HPI and Reports no additional complaints ENT Reports no additional complaints and Reports as per HPI Card Reports as per HPI and Reports no additional complaints Resp Reports as per HPI and Reports no additional complaints GI Reports as per HPI and Reports no additional complaints Skin/Breast Denies lesions Physical Exam Vital Signs: Last Vital Signs Temp 97.1 F 05/08/23 12:03 Pulse 97 05/08/23 12:03 BP 130/78 05/08/23 12:03 Pulse Ox 100 05/08/23 12:03 Oxygen Delivery Method Room Air 05/08/23 12:03 BMI result Body Mass Index 32.0 Const General: cooperative, comfortable and no acute distress Orientation/consciousness: patient oriented x3 HEENT Ears: external ears normal and TM's normal bilaterally General nose exam: Normal nasal mucous membranes and turbinates present Face and sinus: Yes normal facial exam and Yes sinuses nontender Mouth: Normal oral and palatal mucosa present Throat: Yes uvula midline, No peritonsillar mass and Yes posterior oropharynx abnormal (Erythema with scattered exudate over tonsillar pillars and soft palate) Neck Neck: Yes no lymphadenopathy Resp Effort & Inspection: normal respiratory effort Auscultation: clear to auscultation bilaterally Cardio Rate: regular rate Rhythm: regular rhythm Heart sounds: S1 normal heart sound present and S2 normal heart sound present Neuro General: patient oriented x3 Results AMB Rapid Strep AMB Rapid Strep Negative Last Edit by Stiven Thakur CMA on 05/08/23 12 :12 Assessment & Plan Assessment & Plan (1) Pharyngitis: Code(s): J02.9 - Acute pharyngitis, unspecified Qualifiers: Pharyngitis/tonsillitis etiology: unspecified etiology Qualified Code(s): J02.9 - Acute pharyngitis, unspecified Plan: Rapid strep is negative. Symptoms are likely viral in nature. Reviewed self- care and symptomatic treatment with patient. Viral swab collected today will report results as available. Given exposure to COVID advised to quarantine until her results are available. Work note given. Return to clinic if symptoms worsen or do not improve over the next 3-5 days. Orders: Orders AMB Rapid Strep Screen Today Z13.9 - Encounter for screening, unspecified SARS-CoV2/FLU/RSV Today B34.9 - Viral infection, unspecified Coding Level of Care Code Est Pt Level 3 (52693) Diagnoses Pharyngitis, unspecified etiology J02.9 Pharyngitis/tonsillitis etiology: unspecified etiology
[2023-05-08 12:03] VITALS: BP 130/78; PULSE 97; TEMP 36.2; O2SAT 100; BMI 32.0
== END 2023-05-08 12:29 | disposition home or self-care (01) ==
PROVIDERS: PCP Internal Medicine; Visit Provider Physician Assistant
DX: J02.9 Acute pharyngitis, unspecified (principal)
CPT/HCPCS: 87880; 99213

== ENCOUNTER 2023-05-08 12:44 | Outpatient (REF) | payer OTHER, SELFPAY ==
[2023-05-08 18:09] LABS: Influenza A PCR NEGATIVE (Negative); Influenza B PCR NEGATIVE (Negative); Resp Syncy Virus RNA Qual PCR NEGATIVE (Negative); SARS COV2 PCR INHOUSE NEGATIVE (Negative)
== END 2023-05-08 12:45 | disposition home or self-care (01) ==
LOC: HO.LAB 12:44
PROVIDERS: Visit Provider Physician Assistant
DX: B34.9 Viral infection, unspecified (principal); Z20.822 Contact with and (suspected) exposure to COVID-19; Z20.828 Contact with and (suspected) exposure to other viral communicable diseases
CPT/HCPCS: 0241U

== ENCOUNTER 2023-09-16 07:58 | Outpatient (REF) | payer OTHER, SELFPAY ==
[2023-09-16 08:32] LABS: MANUAL DIFF FLAG NO
[2023-09-16 09:16] LABS: Basophils Percent Auto 0.4 % (0-2); Eosinophils Absolute Auto 0.1 X10*3/uL (0.0-0.4); Eosinophils Percent Auto 1.8 % (0-4); Hematocrit 37.4 % (37.0-47.0); Hemoglobin 12.1 g/dl (12.0-16.0); Imm Gran Abs Auto 0.01 X10*3/uL (0.00-0.03); Imm Gran Pct Auto 0.2 % (0.0-0.4); Lymphocytes Absolute Auto 1.3 X10*3/uL (1.2-4.9); Lymphocytes Percent Auto 26.3 % (20-40); Mean Corpuscular HGB Conc 32.4 g/dl (31.0-35.0); Mean Corpuscular Hemoglobin 25.9 pg (27.0-33.0); Mean Corpuscular Volume 79.9 fL (80.0-98.0); Mean Platelet Volume 10.3 fL (9.4-12.3); Monocytes Absolute Auto 0.3 X10*3/uL (0.1-1.2); Monocytes Percent Auto 5.9 % (2-11); Neutrophils Absolute Auto 3.3 x10*3/uL (2.0-8.3); Neutrophils Percent Auto 65.4 % (45-73); Platelet Count 224 X10*3/uL (160-400); Red Blood Count 4.68 X10*6/uL (4.20-5.50); White Blood Count 5.1 X10*3/uL (4.8-10.8)
[2023-09-16 09:27] LABS: Estimated Average Glucose 200 mg/dL; Hemoglobin A1c % 8.6 % (<6.0)
[2023-09-16 10:07] LABS: Alanine Aminotransferase 19 U/L (0-31); Albumin Level 4.3 g/dL (3.5-5.0); Alkaline Phosphatase 91 U/L (39-117); Anion Gap 15 (12-20); Aspartate Amino Transferase 18 U/L (5-31); Bilirubin Total 0.4 mg/dL (0.0-1.0); Blood Urea Nitrogen 12 mg/dL (9-16); Calcium 9.8 mg/dL (8.4-10.2); Carbon Dioxide 24 mmol/L (22-29); Chloride 106 mmol/L (96-108); Cholesterol 177 mg/dL (<200); Estimated Glomerular Filt Rate > 60; Glucose Fasting 173 mg/dL (60-99); HDL Cholesterol 60 mg/dL (>40); LDL Cholesterol Calculated 100 mg/dL (<100); Potassium 3.9 mmol/L (3.3-5.1); Sodium 141 mmol/L (135-145); Triglycerides 89 mg/dL (<150)
[2023-09-16 10:22] LABS: Appearance Urine Clear; Color Urine Yellow; Glucose Urine UA Negative (Negative); Leukocyte Esterase Urine Negative (Negative); Nitrite Urine Negative (Negative); PH 5.5 (5.0-9.0); UMIC TRIGGER UACC YES; Urine Blood Negative (Negative); Urine Ketones Negative (Negative); Urine Protein 30 (1+) mg/dL (Neg-Trace)
[2023-09-16 10:23] LABS: TSH reflex Free T4 0.23 uIU/mL (0.32-4.0); Vitamin D 25-OH Total 25.8 ng/mL (>30)
[2023-09-16 10:28] LABS: Bacteria Urine None Seen (None Seen); Hyaline Casts Urine 0-2 /LPF (0-2); RBC Urine 0-2 /HPF (0-2); WBC Urine 0-5 /HPF (0-5)
[2023-09-16 11:07] LABS: Microalbum/Creatinine Ratio Ur 192.8 ug/mg cr (<30)
[2023-09-16 11:28] LABS: Free T4 (Free Thyroxine) 1.14 ng/dL (0.71-1.85)
== END 2023-09-16 07:59 | disposition home or self-care (01) ==
LOC: HO.LAB 07:58
PROVIDERS: PCP Internal Medicine; Visit Provider Internal Medicine
DX: E11.9 Type 2 diabetes mellitus without complications (principal); E55.9 Vitamin D deficiency, unspecified; E78.00 Pure hypercholesterolemia, unspecified; I10 Essential (primary) hypertension
CPT/HCPCS: 36415; 80053; 80061; 81001; 82043; 82306; 82570; 83036; 84439; 84443; 85025

== ENCOUNTER 2023-09-20 12:23 | Outpatient (AMB) | payer OTHER, SELFPAY ==
[2023-09-20 12:40] VITALS: BP 138/82; PULSE 80; O2SAT 98; BMI 32.1
--- NOTE | 2023-09-20 12:40 | A.OFFPC_ITS ---
Vital Signs 09/20/23 12:40 Height 5 ft 5 in Weight 193 lb 2 oz BMI 32.1 BP 138/82 Blood Pressure Location Lt brachial Position Sitting Pulse 80 Pulse Source Pulse Oximeter Pulse Oximetry (%) 98 Oxygen Delivery Method Room Air Intake Visit Reasons: DM, hyperlipidemia, HTN Carbon Cutter Required: No Accompanied by: Self / Same As Patient Allergies lisinopril Allergy (Unknown, Verified 09/20/23 13:26) severe coughing linagliptin [From Tradjenta] Adverse Reaction (Severe, Verified 09/20/23 13:26) hives/blisters, chest pains, diarrhea pioglitazone Adverse Reaction (Intermediate, Uncoded 09/20/23 13:27) upset stomach Medication List - Last Reconciled 09/20/23 by Herson Healy MD atorvastatin 40 mg PO BEDTIME 90 days losartan 25 mg PO DAILY 90 days metformin ER 1,000 mg (2 x 500 mg) PO BID 90 days pioglitazone 15 mg PO DAILY 90 days sertraline 100 mg PO DAILY 90 days Tobacco use date assessed: 09/20/23 Dental Screening Dental Screen Date: 09/20/23 Did you have a dental visit in the last 12 months?: No Did you have a dental problem in the last 6 months where you did not have access to dental care?: No Was dental information given to patient?: No HPI DM, hyperlipidemia, HTN HPI Details Patient comes in today for her follow up visit States that she feels okay Would like to get a referral to have her hearing checked out - feels that her hearing has declined a lot recently as she sometimes does not even hear her own cell phone ringing She denies any headaches or dizziness Denies any chest pains, no SOB No nausea/vomiting, no abdominal pain No change in bowel habits noted Needs all of her Rx refilled Had her follow up labs done a few days ago - to discuss her results [facility] Medical History Lichen sclerosus Obesity (BMI 30-39.9) Depression Primary osteoarthritis of knee Pure hypercholesterolemia Benign essential hypertension Diabetes mellitus Surgical History History of laparoscopic cholecystectomy Family History Father Diabetes Mother Hypertension Diabetes Social History Housing: Apartment Alcohol intake: never Patient Tobacco Use Status: Never used Tobacco e-Cigarette/Vaping Use: Never Used Second Hand Smoke Exposure: No service: No Current occupational status: employed Cognitive needs: No Hearing needs: No Vision needs: Yes Female Reproductive History Menstrual Age of Menarche: 15 Questionnaire PHQ-9 Over the last 2 weeks, how often have you been bothered by any of the following problems? 1. Little interest or pleasure in doing things: not at all 2. Feeling down, depressed, or hopeless: not at all 3. Trouble falling or staying asleep, or sleeping too much: not at all 4. Feeling tired or having little energy: not at all 5. Poor appetite or overeating: not at all 6. Feeling bad about yourself - or that you are a failure or have let yourself or your family down: not at all 7. Trouble concentrating on things, such as reading the newspaper or watching television: not at all 8. Moving or speaking so slowly that other people could have noticed. Or the opposite - being so fidgety or restless that you have been moving around a lot more than usual: not at all 9. Thoughts that you would be better off or of hurting yourself in some way: not at all Total score: 0 Depression Screening Interpretation: Negative Depression Screening Done: Yes [id number] - PHQ-9 Billing: Yes Source: Developed by Drs. León Lawotn, Charmaine Humphries, Yefri Laird and colleagues, with an educational fitz from [employer]. Thrive Questionnaire Date Thrive assessed: 09/20/23 I am a: Patient What is your living situation today?: I have a steady place to live Within the past 12 months, did the food you bought not last and you didn't have the money to get more?: Never true Within the past 12 months, did you worry whether your food would run out before you got money to buy more?: Never true Do you have trouble paying for medicines?: No Do you have trouble getting transportation to medical appointments?: No Do you have trouble paying your heating and electricity bill?: No Do you have trouble taking care of your child, family member or friend?: No Do you have trouble with day-to-day activities such as bathing, preparing meals, shopping, managing finances, etc.?: No Are you currently unemployed and looking for a job?: No Are you interested in more education?: No Please select the resources that you would like help with: None Currently or been in a relationship where the following occur: no concerns reported THRIVE Score: 0 AUDIT C Alcohol Use Questionnaire (AUDIT-C) 1. How often do you have a drink containing alcohol?: Never 3. How often do you have six or more drinks on one occasion?: Never Total Score: 0 Score Reviewed/Action Taken: Yes TAMANNA-7 AMB Questionnaire TAMANNA-7 Date TAMANNA - 7 assessed: 09/20/23 Feeling nervous, anxious, or on edge: 0 = Not at all Not being able to stop or control worryin = Not at all Worrying too much about different things: 0 = Not at all Trouble relaxin = Not at all Being so restless that it is hard to sit still: 0 = Not at all Becoming easily annoyed or irritable: 0 = Not at all Feeling afraid as if something awful might happen: 0 = Not at all Total TAMANNA-7 score (0-4 normal; 5-9 mild; 10-14 moderate; 15-21 severe): 0 Source: Developed by Drs. León Lawton, Charmaine Humphries, Yefri Laird and colleagues, with an educational fitz from [employer]. Review of Systems Const Denies chills, Denies fatigue, Denies fever(s) and Denies headache(s) ENT Denies dysphagia, Denies dizziness, Denies otalgia, Denies headache(s), Reports hearing loss (in both ears), Denies neck pain, Denies odynophagia and Denies sore throat Card Denies chest pain, Denies palpitations and Denies dyspnea Resp Denies cough and Denies dyspnea GI Denies abdominal pain, Denies constipation, Denies dysphagia, Denies heartburn, Denies diarrhea, Denies nausea, Denies odynophagia and Denies vomiting Denies difficulty voiding, Denies nocturia, Denies dysuria and Denies urinary urgency Musc Denies back pain, Denies arthralgias and Denies neck pain Skin/Breast Denies rash Neuro Denies dizziness and Denies headache(s) Endo Denies fatigue and Denies palpitations Physical exam (Primary Care) Vital Signs: Last Vital Signs Pulse 80 09/20/23 12:40 BP 138/82 09/20/23 12:40 Pulse Ox 98 09/20/23 12:40 Oxygen Delivery Method Room Air 09/20/23 12:40 BMI result Body Mass Index 32.1 Tobacco/Smoking Status: Tobacco use Status Tobacco use date assessed 09/20/23 09/20/23 12:45 Patient Tobacco Use Status Never used Tobacco 09/20/23 12:45 e-Cigarette/Vaping Use Never Used 09/20/23 12:45 PHQ-9: PHQ-9 Score PHQ-9: Total score 0 09/20/23 13:28 Depression Screening Interpretation: Negative Thrive Assessment: Date of Thrive Assessment Date Thrive assessed 09/20/23 09/20/23 12:45 Currently or been in a relationship where the following occur: no concerns reported Const General: no acute distress and alert HENMT Ears: TM's normal bilaterally and EAC's normal Throat: Yes posterior oropharynx normal and Yes tonsils normal (no TP congestion noted) Neck Neck: Yes no lymphadenopathy and Yes supple Resp Auscultation: clear to auscultation bilaterally, no rales and no wheezes Cardio Rate: regular rate Rhythm: regular rhythm Heart sounds: no murmurs GI Palpation (GI): Soft to palpation and nontender Auscultation: normal bowel sounds Back/Spine/Pelvis Thoracic/Lumbar Spine: thoracic and lumbar spine normal to inspection Skin Rashes: no rashes Extrem General: Yes no clubbing, cyanosis or edema Results Reviewed Results Reviewed: Laboratory Tests 09/16/23 09/16/23 08:24 08:31 WBC 5.1 Hgb 12.1 Hct 37.4 Plt Count 224 Sodium 141 Potassium 3.9 Creatinine 0.79 Estimated GFR > 60 Fasting Glucose 173 H Hemoglobin A1c % 8.6 H Calcium 9.8 AST 18 ALT 19 Triglycerides 89 Cholesterol 177 LDL Cholesterol, Calc 100 H HDL Cholesterol 60 25-OH Vitamin D Total 25.8 L TSH 0.23 L Free T4 1.14 Ur Specific [place] 1.020 Urine Protein 30 (1+) H Urine Glucose (UA) Negative Urine Blood Negative Microalb/Creat Ratio 192.8 H Assessment and Plan Assessment & Plan (1) Diabetes mellitus: Code(s): E11.9 - Type 2 diabetes mellitus without complications Qualifiers: Diabetes mellitus complication status: without complication Diabetes mellitus intermediate insulin use: without front end web developer use Diabetes mellitus type: type 2 Qualified Code(s): E11.9 - Type 2 diabetes mellitus without complications Plan: HgbA1c is at 8.6% on her labs done a few days ago (was at 8.0% a few months ago) - goal is < 7.0% Reinforced diabetic diet Continue Metformin ER 500 mg 2 tablets BID She was started on Tradjenta 5 mg Q AM a few months ago but developed side effects from the Rx (hives, chest pains, diarrhea) and she ended up stopping it after a couple of weeks; states that all of the aforementioned side effects gradually cleared up with discontinuation of the Rx She could also not tolerate Januvia 50 mg QD in the past - blood sugar kept dropping too low She also reportedly could not tolerate Pioglitazone 15 mg QD as she was getting a lot of upset stomach while she was on it Will start her now on a trial of Glimepiride 2 mg Q AM (2) Pure hypercholesterolemia: Code(s): E78.00 - Pure hypercholesterolemia, unspecified Plan: Results of her labs done a few days ago reviewed and discussed with patient Reinforced low cholesterol diet Continue Atorvastatin 40 mg QD Will recheck her labs and fasting lipids in 3 months for follow-up (3) Benign essential hypertension: Code(s): I10 - Essential (primary) hypertension Plan: Reinforced low sodium diet -? goal is systolic BP of at least 120 to 130 mm or less Continue Losartan 25 mg QD (4) Hearing impairment: Code(s): H91.90 - Unspecified hearing loss, unspecified ear Qualifiers: Hearing loss type: unspecified Laterality: bilateral Qualified Code(s): H91.93 - Unspecified hearing loss, bilateral Plan: Will refer her for hearing evaluation (5) Depression: Code(s): F32.9 - Major depressive disorder, single episode, unspecified Qualifiers: Active/Remission status: currently active Depression Type: major depressive disorder Major depression episode severity: unspecified Major depression recurrence: recurrent Qualified Code(s): F33.9 - Major depressive disorder, recurrent, unspecified Plan: Continue Sertraline 100 mg QD Follow-up with Psychiatry as scheduled -? was seeing her therapist via telehealth visits lately and advised that as she has been stable on her medication for years, she can just see her therapist only as needed from now on and can continue to just get her Rx refilled by her PCP (6) Obesity (BMI 30-39.9): Code(s): E66.9 - Obesity, unspecified Plan: Reinforced diet/exercise as tolerated/lose weight Plan Follow up in 3 months Orders: Orders Comprehensive [place]. Panel Fast 3 Months E78.00 - Pure hypercholesterolemia, unspecified Complete Blood Count Auto Diff 3 Months D64.9 - Anemia, unspecified TSH reflex Free T4 3 Months E78.00 - Pure hypercholesterolemia, unspecified Microalbumin, Random (w Creat) 3 Months E11.9 - Type 2 diabetes mellitus without complications Hemoglobin A1c 3 Months E11.9 - Type 2 diabetes mellitus without complications Lipid Panel 3 Months E78.00 - Pure hypercholesterolemia, unspecified UA CC w/rflx Micro + Cult 3 Months R30.0 - Dysuria Vitamin D 25-OH Total 3 Months E55.9 - Vitamin D deficiency, unspecified Referrals Speech and Hearing Referral H91.90 - Unspecified hearing loss, unspecified ear Medications: New cholecalciferol (vitamin D3) 50 mcg PO DAILY 90 days 90 caps 3RF E55.9 - Vitamin D deficiency, unspecified glimepiride administer with breakfast 2 mg PO QAM 90 days 90 tabs 1RF Refilled sertraline 100 mg PO DAILY 90 days 90 tabs 1RF metformin ER 1,000 mg (2 x 500 mg) PO BID 90 days 360 tabs 1RF E11.9 - Type 2 diabetes mellitus without complications losartan 25 mg PO DAILY 90 days 90 tabs 1RF atorvastatin 40 mg PO BEDTIME 90 days 90 caps 1RF Discontinued pioglitazone Discontinued Reason: Patient no longer taking 15 mg PO DAILY 90 days 90 tabs 1RF Coding Level of Care Code Est Pt Level 4 (64118) Diagnoses Type 2 diabetes mellitus without complication, without long-term current use of insulin E11.9 Diabetes mellitus complication status: without complication Diabetes mellitus front end web developer insulin use: without intermediate use Diabetes mellitus type: type 2 Pure hypercholesterolemia E78.00 Benign essential hypertension I10 Bilateral hearing loss, unspecified hearing loss type H91.93 Hearing loss type: unspecified Laterality: bilateral Episode of recurrent major depressive disorder, unspecified depression episode severity F33.9 Active/Remission status: currently active Depression Type: major depressive disorder Major depression episode severity: unspecified Major depression recurrence: recurrent Obesity (BMI 30-39.9) E66.9
== END 2023-09-20 13:33 | disposition home or self-care (01) ==
PROVIDERS: PCP Internal Medicine; Visit Provider Internal Medicine
DX: E11.9 Type 2 diabetes mellitus without complications (principal); F33.9 Major depressive disorder, recurrent, unspecified; E78.00 Pure hypercholesterolemia, unspecified; I10 Essential (primary) hypertension; H91.93 Unspecified hearing loss, bilateral; E66.9 Obesity, unspecified
CPT/HCPCS: 99214

== ENCOUNTER 2023-11-16 08:12 | Outpatient (REF) | payer OTHER, SELFPAY | END 2023-11-16 08:13 | disposition home or self-care (01) | LOC: HO.MAMMO 08:12 | PROVIDERS: PCP Internal Medicine; Visit Provider Internal Medicine | DX: Z12.31 Encounter for screening mammogram for malignant neoplasm of breast (principal) | CPT/HCPCS: 77063; 77067 ==

== ENCOUNTER → 2023-11-16 08:45 | Outpatient (BNV) | payer OTHER, SELFPAY | PROVIDERS: PCP Internal Medicine; Visit Provider Radiology Diagnostic Radiology | DX: Z12.31 Encounter for screening mammogram for malignant neoplasm of breast (principal) | CPT/HCPCS: 77063; 77067 ==

== ENCOUNTER 2023-11-17 08:06 | Outpatient (REF) | payer OTHER, SELFPAY | END 2023-11-17 08:07 | disposition home or self-care (01) | LOC: HO.SH 08:06 | PROVIDERS: PCP Internal Medicine; Visit Provider Internal Medicine | DX: Z01.118 Encounter for examination of ears and hearing with other abnormal findings (principal); H90.3 Sensorineural hearing loss, bilateral | CPT/HCPCS: 92557; 92567 ==

== ENCOUNTER 2023-12-07 09:30 | Outpatient (AMB) | payer OTHER, SELFPAY ==
--- NOTE | 2023-12-07 09:32 | MHC.OFFVIS ---
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 No complaints. Last Pap/HPV was negative in 09/03 Last Mammogram was BI-RADS 1 in 12/05 Last Colonoscopy was done in 06/28, the recommendation was to repeat in 10 years [facility] Medical History Lichen sclerosus Obesity (BMI 30-39.9) Depression Primary osteoarthritis of knee Pure hypercholesterolemia Benign essential hypertension Diabetes mellitus Surgical History History of laparoscopic cholecystectomy Family History Father Diabetes Mother Hypertension Diabetes Social History Housing: Apartment Alcohol intake: never Patient Tobacco Use Status: Never used Tobacco e-Cigarette/Vaping Use: Never Used Second Hand Smoke Exposure: No service: No Current occupational status: employed Cognitive needs: No Hearing needs: No Vision needs: Yes Female Reproductive History Menstrual Age of Menarche: 15 Menopause type: natural Total pregnancies: 4 Full term: 4 Number of Living Children: 4 Date of last pap smear: 08/21/20 Date of Mammogram: 11/16/23 Review of Systems Const All systems reviewed & are unremarkable except as noted in HPI and below Card Reports as per HPI Resp Reports as per HPI GI Reports as per HPI and Reports no additional complaints Reports as per HPI Physical Exam Vital Signs: Last Vital Signs BP 122/82 12/07/23 09:37 BMI result Body Mass Index 32.9 Const General: cooperative, healthy appearing and comfortable Chest Chest palpation & inspection: normal inspection of the chest and normal palpation of entire chest wall Breast/axilla inspection: normal inspection of the breasts and normal inspection of the axillae Breast/axilla palpation: normal palpation of the breasts, normal palpation of the axillae and no axillary lymphadenopathy Resp Effort & Inspection: normal respiratory effort Auscultation: clear to auscultation bilaterally Percussion: percussion normal Cardio Palpation: normal PMI Rate: regular rate Rhythm: regular rhythm Heart sounds: no murmurs and no rubs Peripheral pulses: Peripheral pulses 2+ throughout GI Inspection: Yes normal to inspection Palpation (GI): Soft to palpation, nontender, no guarding, not rigid and No hepatosplenomegaly present Percussion: Yes normal to percussion Auscultation: normal bowel sounds Rectal Exam - Female: deferred General: Yes bladder normal to palpation External Female Exam: No lesion Speculum Exam - Vagina: normal appearance of the vagina, normal palpation, normal vaginal discharge and not erythematous Speculum Exam - Cervix: normal appearance of the cervix and normal palpation Bimanual exam- vagina & uterus: normal bimanual exam, normal palpation, uterine size normal, bladder normal to palpation, consistency normal and normal palpation Bimanual Exam- Adnexa, other: normal adnexae, no masses and no tenderness Assessment & Plan Assessment & Plan (1) Well woman exam: Code(s): Z01.419 - Encounter for gynecological examination (general) (routine) without abnormal findings Category: Medical Plan: Co testing not indicated this year. Counseled the patient about the recommended dietary allowance of 1200 mg of Calcium & 600 IU of vitamin D. Instructions given to the patient to schedule next screening Mammogram in 12/06. The patient was instructed to perform monthly self-breast exams and schedule annual exam in a year. All questions answered and the patient verbalized understanding. Coding Level of Care Code Est Pt Prev Care 40-64y(91400) Diagnoses Well woman exam Z01.419
[2023-12-07 09:37] VITALS: BP 122/82; BMI 32.9
== END 2023-12-07 10:08 | disposition home or self-care (01) ==
PROVIDERS: PCP Internal Medicine; Visit Provider Obstetrics & Gynecology
DX: Z01.419 Encounter for gynecological examination (general) (routine) without abnormal findings (principal)
CPT/HCPCS: 99396

== ENCOUNTER → 2023-12-07 09:30 | Outpatient (BNVA) | payer OTHER, SELFPAY | PROVIDERS: Visit Provider Obstetrics & Gynecology ==

== ENCOUNTER 2023-12-23 07:09 | Outpatient (REF) | payer OTHER, SELFPAY ==
[2023-12-23 07:56] LABS: Basophils Percent Auto 0.4 % (0-2); Eosinophils Absolute Auto 0.1 X10*3/uL (0.0-0.4); Eosinophils Percent Auto 1.8 % (0-4); Hematocrit 36.4 % (37.0-47.0); Hemoglobin 11.7 g/dl (12.0-16.0); Imm Gran Abs Auto 0.01 X10*3/uL (0.00-0.03); Imm Gran Pct Auto 0.2 % (0.0-0.4); Lymphocytes Absolute Auto 1.6 X10*3/uL (1.2-4.9); Lymphocytes Percent Auto 28.8 % (20-40); MANUAL DIFF FLAG NO; Mean Corpuscular HGB Conc 32.1 g/dl (31.0-35.0); Mean Corpuscular Hemoglobin 25.8 pg (27.0-33.0); Mean Corpuscular Volume 80.2 fL (80.0-98.0); Mean Platelet Volume 10.7 fL (9.4-12.3); Monocytes Absolute Auto 0.4 X10*3/uL (0.1-1.2); Monocytes Percent Auto 6.8 % (2-11); Neutrophils Absolute Auto 3.4 x10*3/uL (2.0-8.3); Platelet Count 173 X10*3/uL (160-400); Red Blood Count 4.54 X10*6/uL (4.20-5.50); Red Cell Distribution Width 13.2 % (11.0-16.0); White Blood Count 5.5 X10*3/uL (4.8-10.8)
[2023-12-23 08:04] LABS: Estimated Average Glucose 174 mg/dL; Hemoglobin A1c % 7.7 % (<6.0)
[2023-12-23 08:47] LABS: Alanine Aminotransferase 22 U/L (0-31); Albumin Level 4.4 g/dL (3.5-5.0); Alkaline Phosphatase 89 U/L (39-117); Anion Gap 16 (12-20); Aspartate Amino Transferase 19 U/L (5-31); Bilirubin Total 0.3 mg/dL (0.0-1.0); Blood Urea Nitrogen 14 mg/dL (9-16); Calcium 9.7 mg/dL (8.4-10.2); Carbon Dioxide 25 mmol/L (22-29); Chloride 105 mmol/L (96-108); Cholesterol 165 mg/dL (<200); Estimated Glomerular Filt Rate > 60; Glucose Fasting 175 mg/dL (60-99); HDL Cholesterol 54 mg/dL (>40); LDL Cholesterol Calculated 89 mg/dL (<100); Potassium 4.1 mmol/L (3.3-5.1); Sodium 142 mmol/L (135-145); Total Protein 8.1 g/dL (6.5-8.0); Triglycerides 110 mg/dL (<150)
[2023-12-23 09:06] LABS: TSH reflex Free T4 0.35 uIU/mL (0.32-4.0); Vitamin D 25-OH Total 46.8 ng/mL (>30)
[2023-12-23 09:21] LABS: Appearance Urine Clear; Color Urine Yellow; Glucose Urine UA Negative (Negative); Leukocyte Esterase Urine Negative (Negative); Nitrite Urine Negative (Negative); PH 5.5 (5.0-9.0); Specific Gravity - Urine 1.025 (1.005-1.025); UMIC TRIGGER UACC YES; Urine Blood Negative (Negative); Urine Ketones Negative (Negative); Urine Protein 30 (1+) mg/dL (Neg-Trace)
[2023-12-23 09:28] LABS: Bacteria Urine None Seen (None Seen); Hyaline Casts Urine 0-2 /LPF (0-2); RBC Urine 0-2 /HPF (0-2); Squamous Epithelial Cell Urine 0-2 /HPF (0-2); WBC Urine 0-5 /HPF (0-5)
[2023-12-23 09:54] LABS: Creatinine Urine 176.96 mg/dL; Microalbum/Creatinine Ratio Ur 74.5 ug/mg cr (<30)
== END 2023-12-23 07:10 | disposition home or self-care (01) ==
LOC: HO.LAB 07:09
PROVIDERS: PCP Internal Medicine; Visit Provider Internal Medicine
DX: D64.9 Anemia, unspecified (principal); E78.00 Pure hypercholesterolemia, unspecified; E11.9 Type 2 diabetes mellitus without complications; E55.9 Vitamin D deficiency, unspecified
CPT/HCPCS: 36415; 80053; 80061; 81001; 81003; 82043; 82306; 82570; 83036; 84443; 85025

== ENCOUNTER 2023-12-28 11:50 | Outpatient (AMB) | payer OTHER, SELFPAY ==
[2023-12-28 11:50] VITALS: BP 134/72; PULSE 87; O2SAT 98
--- NOTE | 2023-12-28 11:50 | A.OFFPC_ITS ---
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 Allergies lisinopril Allergy (Unknown, Verified 12/28/23 12:43) severe coughing linagliptin [From Tradjenta] Adverse Reaction (Severe, Verified 12/28/23 12:43) hives/blisters, chest pains, diarrhea sitagliptin [From Januvia] Adverse Reaction (Intermediate, Verified 12/28/23 22:38) hypoglemia pioglitazone Adverse Reaction (Intermediate, Uncoded 12/28/23 12:43) upset stomach Medication List - Last Reconciled 12/28/23 by Herson Healy MD atorvastatin 40 mg PO BEDTIME 90 days cholecalciferol (vitamin D3) 50 mcg PO DAILY 90 days glimepiride 2 mg PO QAM 90 days losartan 25 mg PO DAILY 90 days metformin ER 1,000 mg (2 x 500 mg) PO BID 90 days sertraline 100 mg PO DAILY 90 days Tobacco use date assessed: 12/28/23 Dental Screening Dental Screen Date: 09/20/23 HPI 3 month f/u HPI Details Patient comes in today for her follow up visit States that she feels okay Relates that she was experiencing frequent dizziness due to low blood sugar readings when she first started taking the Glimepiride 2 mg daily that we prescribed for her at her last visit States that she then started cutting it in half and has not had the same reactions - has been taking half a tablet of her Glimepiride 2 mg daily since She denies any headaches or dizziness Denies any chest pains, no shortness of breath No nausea / vomiting, no abdominal pain No change in bowel habits noted Patient needs several of her Rx refilled Had her follow up labs done a few days ago - to discuss her results [facility] Medical History (Updated 12/28/23 @ 22:41 by Herson Healy MD) Vitamin D deficiency Lichen sclerosus Obesity (BMI 30-39.9) Depression Primary osteoarthritis of knee Pure hypercholesterolemia Benign essential hypertension Diabetes mellitus Surgical History History of laparoscopic cholecystectomy Family History Father Diabetes Mother Hypertension Diabetes Social History Housing: Apartment Alcohol intake: never Patient Tobacco Use Status: Never used Tobacco e-Cigarette/Vaping Use: Never Used Second Hand Smoke Exposure: No service: No Current occupational status: employed Cognitive needs: No Hearing needs: No Vision needs: Yes Female Reproductive History Menstrual Age of Menarche: 15 Questionnaire PHQ-9 Over the last 2 weeks, how often have you been bothered by any of the following problems? 1. Little interest or pleasure in doing things: not at all 2. Feeling down, depressed, or hopeless: not at all 3. Trouble falling or staying asleep, or sleeping too much: not at all 4. Feeling tired or having little energy: not at all 5. Poor appetite or overeating: not at all 6. Feeling bad about yourself - or that you are a failure or have let yourself or your family down: not at all 7. Trouble concentrating on things, such as reading the newspaper or watching television: not at all 8. Moving or speaking so slowly that other people could have noticed. Or the opposite - being so fidgety or restless that you have been moving around a lot more than usual: not at all 9. Thoughts that you would be better off or of hurting yourself in some way: not at all Total score: 0 Depression Screening Interpretation: Negative Depression Screening Done: Yes 83220 - PHQ-9 Billing: Yes Source: Developed by Drs. León Lawton, Charmaine Humphries, Yefri Laird and colleagues, with an educational fitz from [employer]. Thrive Questionnaire Date Thrive assessed: 12/28/23 I am a: Patient What is your living situation today?: I have a steady place to live Within the past 12 months, did the food you bought not last and you didn't have the money to get more?: Never true Within the past 12 months, did you worry whether your food would run out before you got money to buy more?: Never true Do you have trouble paying for medicines?: No Do you have trouble getting transportation to medical appointments?: No Do you have trouble paying your heating and electricity bill?: No Do you have trouble taking care of your child, family member or friend?: No Do you have trouble with day-to-day activities such as bathing, preparing meals, shopping, managing finances, etc.?: No Are you currently unemployed and looking for a job?: No Are you interested in more education?: No Please select the resources that you would like help with: None Currently or been in a relationship where the following occur: no concerns reported THRIVE Score: 0 AUDIT C Alcohol Use Questionnaire (AUDIT-C) 1. How often do you have a drink containing alcohol?: Never 3. How often do you have six or more drinks on one occasion?: Never Total Score: 0 Score Reviewed/Action Taken: Yes TAMANNA-7 AMB Questionnaire TAMANNA-7 Date TAMANNA - 7 assessed: 09/20/23 Source: Developed by Drs. León Lawton, Charmaine Humphries, Yefri Laird and colleagues, with an educational fitz from [employer]. Review of Systems Const Denies chills, Denies fatigue, Denies fever(s) and Denies headache(s) ENT Denies dysphagia, Denies dizziness, Denies otalgia, Denies headache(s), Reports hearing loss (in both ears), Denies neck pain, Denies odynophagia and Denies sore throat Card Denies chest pain, Denies palpitations and Denies dyspnea Resp Denies cough and Denies dyspnea GI Denies abdominal pain, Denies constipation, Denies dysphagia, Denies heartburn, Denies diarrhea, Denies nausea, Denies odynophagia and Denies vomiting Denies difficulty voiding, Denies nocturia, Denies dysuria and Denies urinary urgency Musc Denies back pain, Denies arthralgias and Denies neck pain Skin/Breast Denies rash Neuro Denies dizziness and Denies headache(s) Endo Denies fatigue and Denies palpitations Physical exam (Primary Care) Vital Signs: Last Vital Signs Pulse 87 12/28/23 11:50 BP 134/72 12/28/23 11:50 Pulse Ox 98 12/28/23 11:50 Oxygen Delivery Method Room Air 12/28/23 11:50 Tobacco/Smoking Status: Tobacco use Status Tobacco use date assessed 12/28/23 12/28/23 11:52 Patient Tobacco Use Status Never used Tobacco 12/28/23 11:52 e-Cigarette/Vaping Use Never Used 12/28/23 11:52 PHQ-9: PHQ-9 Score PHQ-9: Total score 0 12/28/23 12:45 Depression Screening Interpretation: Negative Thrive Assessment: Date of Thrive Assessment Date Thrive assessed 09/20/23 12/28/23 11:52 Currently or been in a relationship where the following occur: no concerns reported Const General: no acute distress and alert HENMT Ears: TM's normal bilaterally and EAC's normal Throat: Yes posterior oropharynx normal and Yes tonsils normal (no TP congestion noted) Neck Neck: Yes no lymphadenopathy and Yes supple Resp Auscultation: clear to auscultation bilaterally, no rales and no wheezes Cardio Rate: regular rate Rhythm: regular rhythm Heart sounds: no murmurs GI Palpation (GI): Soft to palpation and nontender Auscultation: normal bowel sounds Back/Spine/Pelvis Thoracic/Lumbar Spine: thoracic and lumbar spine normal to inspection Skin Rashes: no rashes Extrem General: Yes no clubbing, cyanosis or edema Results Reviewed Results Reviewed: Laboratory Tests 09/16/23 12/23/23 12/23/23 08:31 07:20 07:35 WBC 5.1 5.5 Hgb 12.1 11.7 L Hct 37.4 36.4 L Plt Count 224 173 Sodium 142 Potassium 4.1 Creatinine 0.88 Estimated GFR > 60 Fasting Glucose 175 H Hemoglobin A1c % Calcium 9.7 AST 19 ALT 22 Triglycerides 110 Cholesterol 165 LDL Cholesterol, Calc 89 HDL Cholesterol 54 25-OH Vitamin D Total 46.8 TSH 0.35 Free T4 1.14 Ur Specific [place] 1.025 Urine Protein 30 (1+) H Urine Glucose (UA) Negative Urine Blood Negative Urine Nitrite Negative Ur Leukocyte Esterase Negative Microalb/Creat Ratio 74.5 H 12/23/23 Unknown WBC Hgb Hct Plt Count Sodium Potassium Creatinine Estimated GFR Fasting Glucose Hemoglobin A1c % 7.7 H Calcium AST ALT Triglycerides Cholesterol LDL Cholesterol, Calc HDL Cholesterol 25-OH Vitamin D Total TSH Free T4 Ur Specific [place] Urine Protein Urine Glucose (UA) Urine Blood Urine Nitrite Ur Leukocyte Esterase Microalb/Creat Ratio Assessment and Plan Assessment & Plan (1) Diabetes mellitus: Code(s): E11.9 - Type 2 diabetes mellitus without complications Qualifiers: Diabetes mellitus type: type 2 Diabetes mellitus penitentiary insulin use: without penitentiary use Diabetes mellitus complication status: without complication Qualified Code(s): E11.9 - Type 2 diabetes mellitus without complications Plan: Her HgbA1c has improved to 7.7% on her recent labs (was at 8.6% a few months ago) - goal is < 7.0% Reinforced diabetic diet Continue Metformin ER 500 mg 2 tablets BID and Glimepiride 1 mg QD - she could not tolerate the 2 mg dose as her blood sugar kept dropping too low on the higher dose Will send in a new Rx for the 1 mg tablets so she does not have to keep splitting her 2 mg tablets in half She has not been able to tolerate Tradjenta, Januvia and Pioglitazone in the past due to side effects (2) Pure hypercholesterolemia: Code(s): E78.00 - Pure hypercholesterolemia, unspecified Plan: Results of her labs done a few days ago reviewed and discussed with patient Reinforced low cholesterol diet Continue Atorvastatin 40 mg QD Will recheck her labs and fasting lipids in 4 months for follow-up (3) Benign essential hypertension: Code(s): I10 - Essential (primary) hypertension Plan: Reinforced low sodium diet -? goal is systolic BP of at least 120 to 130 mm or less Continue Losartan 25 mg QD (4) Vitamin D deficiency: Code(s): E55.9 - Vitamin D deficiency, unspecified Plan: Corrected - continue Vitamin D3 2000 units QD (5) Hearing impairment: Code(s): H91.90 - Unspecified hearing loss, unspecified ear Qualifiers: Hearing loss type: unspecified Laterality: bilateral Qualified Code(s): H91.93 - Unspecified hearing loss, bilateral Plan: She has been referred previously for hearing evaluation States that she has been advised that she has significant hearing impairment and is currently still undergoing further evaluation as to how to best manage her hearing deficit (6) Depression: Code(s): F32.9 - Major depressive disorder, single episode, unspecified Qualifiers: Depression Type: major depressive disorder Major depression recurrence: recurrent Active/Remission status: currently active Major depression episode severity: unspecified Qualified Code(s): F33.9 - Major depressive disorder, recurrent, unspecified Plan: Continue Sertraline 100 mg QD Follow-up with Psychiatry as scheduled -? was seeing her therapist via telehealth visits lately and advised that as she has been stable on her medication for years, she can just see her therapist only as needed from now on and can continue to just get her Rx refilled by her PCP (7) Obesity (BMI 30-39.9): Code(s): E66.9 - Obesity, unspecified Plan: Reinforced diet/exercise as tolerated/lose weight Plan Follow up in 4 months Orders: Orders Lipid Panel 4 Months E78.00 - Pure hypercholesterolemia, unspecified Microalbumin, Random (w Creat) 4 Months E11.9 - Type 2 diabetes mellitus without complications TSH reflex Free T4 4 Months E78.00 - Pure hypercholesterolemia, unspecified Vitamin B12 and Folate 4 Months E53.8 - Deficiency of other specified B group vitamins Hemoglobin A1c 4 Months E11.9 - Type 2 diabetes mellitus without complications Complete Blood Count Auto Diff 4 Months D64.9 - Anemia, unspecified Comprehensive [place]. Panel Fast 4 Months E78.00 - Pure hypercholesterolemia, unspecified UA CC w/rflx Micro + Cult 4 Months R30.0 - Dysuria Vitamin D 25-OH Total 4 Months E55.9 - Vitamin D deficiency, unspecified Medications: Changed From glimepiride administer with breakfast 2 mg PO QAM 90 days 90 tabs 1RF To glimepiride administer with breakfast 1 mg PO QAM 90 tabs 1RF 90 days Refilled losartan 25 mg PO DAILY 90 tabs 1RF 90 days atorvastatin 40 mg PO BEDTIME 90 caps 1RF 90 days cholecalciferol (vitamin D3) 50 mcg PO DAILY 90 caps 3RF 90 days E55.9 - Vitamin D deficiency, unspecified metformin ER 1,000 mg (2 x 500 mg) PO BID 360 tabs 1RF 90 days E11.9 - Type 2 diabetes mellitus without complications sertraline 100 mg PO DAILY 90 tabs 1RF 90 days Coding Level of Care Code Est Pt Level 4 (80709) Diagnoses Type 2 diabetes mellitus without complication, without long-term current use of insulin E11.9 Diabetes mellitus type: type 2 Diabetes mellitus penitentiary insulin use: without exterminator helper termite use Diabetes mellitus complication status: without complication Pure hypercholesterolemia E78.00 Benign essential hypertension I10 Vitamin D deficiency E55.9 Bilateral hearing loss, unspecified hearing loss type H91.93 Hearing loss type: unspecified Laterality: bilateral Episode of recurrent major depressive disorder, unspecified depression episode severity F33.9 Depression Type: major depressive disorder Major depression recurrence: recurrent Active/Remission status: currently active Major depression episode severity: unspecified Obesity (BMI 30-39.9) E66.9
== END 2023-12-28 12:49 | disposition home or self-care (01) ==
PROVIDERS: PCP Internal Medicine; Visit Provider Internal Medicine
DX: E11.9 Type 2 diabetes mellitus without complications (principal); F33.9 Major depressive disorder, recurrent, unspecified; E78.00 Pure hypercholesterolemia, unspecified; I10 Essential (primary) hypertension; E55.9 Vitamin D deficiency, unspecified; H91.93 Unspecified hearing loss, bilateral; E66.9 Obesity, unspecified
CPT/HCPCS: 99214

== ENCOUNTER 2024-08-03 07:15 | Outpatient (REF) | payer OTHER, SELFPAY ==
[2024-08-03 07:36] LABS: MANUAL DIFF FLAG NO
[2024-08-03 07:54] LABS: Basophils Percent Auto 0.3 % (0-2); Eosinophils Absolute Auto 0.1 X10*3/uL (0.0-0.4); Eosinophils Percent Auto 1.6 % (0-4); Hematocrit 37.4 % (37.0-47.0); Hemoglobin 12.2 g/dl (12.0-16.0); Imm Gran Abs Auto 0.01 X10*3/uL (0.00-0.03); Imm Gran Pct Auto 0.2 % (0.0-0.4); Lymphocytes Absolute Auto 1.7 X10*3/uL (1.2-4.9); Lymphocytes Percent Auto 28.7 % (20-40); Mean Corpuscular HGB Conc 32.6 g/dl (31.0-35.0); Mean Corpuscular Hemoglobin 26.1 pg (27.0-33.0); Mean Corpuscular Volume 80.1 fL (80.0-98.0); Mean Platelet Volume 10.1 fL (9.4-12.3); Monocytes Absolute Auto 0.4 X10*3/uL (0.1-1.2); Monocytes Percent Auto 6.6 % (2-11); Neutrophils Absolute Auto 3.8 x10*3/uL (2.0-8.3); Neutrophils Percent Auto 62.6 % (45-73); Platelet Count 219 X10*3/uL (160-400); Red Blood Count 4.67 X10*6/uL (4.20-5.50); Red Cell Distribution Width 13.4 % (11.0-16.0); White Blood Count 6.1 X10*3/uL (4.8-10.8)
[2024-08-03 07:59] LABS: Estimated Average Glucose 171 mg/dL; Hemoglobin A1C 182.8307 umol/L; Hemoglobin A1c % 7.6 % (<6.0); Total Hemoglobin (HGBA1C) 3051.0554 umol/L
[2024-08-03 08:09] LABS: Appearance Urine Cloudy; Color Urine Yellow; Glucose Urine UA Negative (Negative); Leukocyte Esterase Urine Negative (Negative); Nitrite Urine Negative (Negative); PH 5.5 (5.0-9.0); Specific Gravity - Urine 1.025 (1.005-1.025); Urine Blood Negative (Negative); Urine Ketones Negative (Negative); Urine Protein Trace mg/dL (Neg-Trace)
[2024-08-03 08:26] LABS: Alanine Aminotransferase 28 U/L (0-31); Albumin Level 4.5 g/dL (3.5-5.0); Alkaline Phosphatase 87 U/L (39-117); Anion Gap 14 (12-20); Aspartate Amino Transferase 24 U/L (5-31); Bilirubin Total 0.4 mg/dL (0.0-1.0); Blood Urea Nitrogen 15 mg/dL (9-16); Calcium 9.5 mg/dL (8.4-10.2); Carbon Dioxide 25 mmol/L (22-29); Chloride 108 mmol/L (96-108); Cholesterol 174 mg/dL (<200); Estimated Glomerular Filt Rate > 60; Glucose Fasting 181 mg/dL (60-99); HDL Cholesterol 57 mg/dL (>40); LDL Cholesterol Calculated 100 mg/dL (<100); Potassium 4.1 mmol/L (3.3-5.1); Sodium 143 mmol/L (135-145); Total Protein 8.1 g/dL (6.5-8.0); Triglycerides 88 mg/dL (<150)
[2024-08-03 08:28] LABS: Creatinine Urine 156.08 mg/dL; Microalbum/Creatinine Ratio Ur 68.5 ug/mg cr (<30)
[2024-08-03 08:40] LABS: TSH reflex Free T4 0.41 uIU/mL (0.32-4.0); Vitamin D 25-OH Total 49.2 ng/mL (>30)
[2024-08-03 08:54] LABS: Folate 17.4 ng/mL (> or = 4.0); Vitamin B12 519 pg/mL (200-900)
== END 2024-08-03 07:16 | disposition home or self-care (01) ==
LOC: HO.LAB 07:15
PROVIDERS: PCP Internal Medicine; Visit Provider Internal Medicine
DX: E78.00 Pure hypercholesterolemia, unspecified (principal); E11.9 Type 2 diabetes mellitus without complications; D64.9 Anemia, unspecified; R30.0 Dysuria; E55.9 Vitamin D deficiency, unspecified; E53.8 Deficiency of other specified B group vitamins
CPT/HCPCS: 36415; 80053; 80061; 81003; 82043; 82306; 82570; 82607; 82746; 83036; 84443; 85025

== ENCOUNTER 2024-08-12 10:32 | Outpatient (AMB) | payer OTHER, SELFPAY ==
[2024-08-12 10:33] VITALS: BP 130/80; PULSE 91; BMI 33.6
--- NOTE | 2024-08-12 10:33 | A.OFFPC_ITS ---
Vital Signs 08/12/24 10:33 Height 5 ft 5 in Weight 202 lb BMI 33.6 BP 130/80 Blood Pressure Location Lt brachial Position Sitting Pulse 91 Pulse Source Pulse Oximeter Oxygen Delivery Method Room Air Intake Visit Reasons: DM, hyperlipidemia, HTN Grey Inspector Required: No Accompanied by: Self / Same As Patient Allergies lisinopril Allergy (Unknown, Verified 08/12/24 11:12) severe coughing linagliptin [From Tradjenta] Adverse Reaction (Severe, Verified 08/12/24 11:12) hives/blisters, chest pains, diarrhea sitagliptin [From Januvia] Adverse Reaction (Intermediate, Verified 08/12/24 11:12) hypoglemia pioglitazone Adverse Reaction (Intermediate, Uncoded 08/12/24 11:12) upset stomach Medication List - Last Reconciled 08/12/24 by Herson Healy MD atorvastatin 40 mg PO BEDTIME 90 days cholecalciferol (vitamin D3) 50 mcg PO DAILY 90 days glimepiride 1 mg PO QAM 90 days losartan 25 mg PO DAILY 90 days metformin ER 1,000 mg (2 x 500 mg) PO BID 90 days sertraline 100 mg PO DAILY 90 days Tobacco use date assessed: 08/12/24 Dental Screening Dental Screen Date: 08/12/24 Did you have a dental visit in the last 12 months?: No Did you have a dental problem in the last 6 months where you did not have access to dental care?: No Was dental information given to patient?: Patient has dentist HPI DM, hyperlipidemia, HTN HPI Details Patient comes in today for her follow up visit States that she feels okay She denies any headaches or dizziness Denies any chest pains, no SOB No nausea/vomiting, no abdominal pain No change in bowel habits noted Needs a couple of her Rx refilled She had her follow up labs done a couple of weekends ago - to discuss her results [facility] Medical History Vitamin D deficiency Lichen sclerosus Obesity (BMI 30-39.9) Depression Primary osteoarthritis of knee Pure hypercholesterolemia Benign essential hypertension Diabetes mellitus Surgical History History of laparoscopic cholecystectomy Family History Father Diabetes Mother Hypertension Diabetes Social History Housing: Apartment Alcohol intake: never Patient Tobacco Use Status: Never used Tobacco e-Cigarette/Vaping Use: Never Used Second Hand Smoke Exposure: No service: No Current occupational status: employed Cognitive needs: No Hearing needs: No Vision needs: Yes Female Reproductive History Menstrual Age of Menarche: 15 Questionnaire PHQ-9 Over the last 2 weeks, how often have you been bothered by any of the following problems? 1. Little interest or pleasure in doing things: not at all 2. Feeling down, depressed, or hopeless: not at all 3. Trouble falling or staying asleep, or sleeping too much: not at all 4. Feeling tired or having little energy: not at all 5. Poor appetite or overeating: not at all 6. Feeling bad about yourself - or that you are a failure or have let yourself or your family down: not at all 7. Trouble concentrating on things, such as reading the newspaper or watching television: not at all 8. Moving or speaking so slowly that other people could have noticed. Or the opposite - being so fidgety or restless that you have been moving around a lot more than usual: not at all 9. Thoughts that you would be better off or of hurting yourself in some way: not at all Total score: 0 Depression Screening Interpretation: Negative Depression Screening Done: Yes 18498 - PHQ-9 Billing: Yes Source: Developed by Drs. León Lawton, Charmaine Humphries, Yefri Laird and colleagues, with an educational fitz from [employer]. Thrive Questionnaire Date Thrive assessed: 08/12/24 I am a: Patient What is your living situation today?: I have a steady place to live Within the past 12 months, did the food you bought not last and you didn't have the money to get more?: Never true Within the past 12 months, did you worry whether your food would run out before you got money to buy more?: Never true Do you have trouble paying for medicines?: No Do you have trouble getting transportation to medical appointments?: No Do you have trouble paying your heating and electricity bill?: No Do you have trouble taking care of your child, family member or friend?: No Do you have trouble with day-to-day activities such as bathing, preparing meals, shopping, managing finances, etc.?: No Are you currently unemployed and looking for a job?: No Are you interested in more education?: No Please select the resources that you would like help with: None Currently or been in a relationship where the following occur: No concerns reported THRIVE Score: 0 AUDIT C Alcohol Use Questionnaire (AUDIT-C) 1. How often do you have a drink containing alcohol?: Never 3. How often do you have six or more drinks on one occasion?: Never Total Score: 0 Score Reviewed/Action Taken: Yes TAMANNA-7 AMB Questionnaire TAMANNA-7 Date TAMANNA - 7 assessed: 08/12/24 Feeling nervous, anxious, or on edge: 0 = Not at all Not being able to stop or control worryin = Not at all Worrying too much about different things: 0 = Not at all Trouble relaxin = Not at all Being so restless that it is hard to sit still: 0 = Not at all Becoming easily annoyed or irritable: 0 = Not at all Feeling afraid as if something awful might happen: 0 = Not at all Total TAMANNA-7 score (0-4 normal; 5-9 mild; 10-14 moderate; 15-21 severe): 0 Source: Developed by Drs. León Lawton, Charmaine Humphries, Yefri Laird and colleagues, with an educational fitz from [employer]. Review of Systems Const Denies chills, Denies fatigue, Denies fever(s) and Denies headache(s) ENT Denies dysphagia, Denies dizziness, Denies otalgia, Denies headache(s), Reports hearing loss (in both ears), Denies neck pain, Denies odynophagia and Denies sore throat Card Denies chest pain, Denies palpitations and Denies dyspnea Resp Denies chest congestion, Denies cough and Denies dyspnea GI Denies abdominal pain, Denies constipation, Denies dysphagia, Denies heartburn, Denies diarrhea, Denies nausea, Denies odynophagia and Denies vomiting Denies difficulty voiding, Denies nocturia, Denies dysuria and Denies urinary urgency Musc Denies back pain, Denies arthralgias and Denies neck pain Skin/Breast Denies rash Neuro Denies dizziness and Denies headache(s) Endo Denies fatigue and Denies palpitations Physical exam (Primary Care) Vital Signs: Last Vital Signs Pulse 91 08/12/24 10:33 BP 130/80 08/12/24 10:33 Oxygen Delivery Method Room Air 08/12/24 10:33 BMI result Body Mass Index 33.6 Tobacco/Smoking Status: Tobacco use Status Tobacco use date assessed 08/12/24 08/12/24 10:38 Patient Tobacco Use Status Never used Tobacco 08/12/24 10:38 e-Cigarette/Vaping Use Never Used 08/12/24 10:38 PHQ-9: PHQ-9 Score PHQ-9: Total score 0 08/12/24 10:38 Depression Screening Interpretation: Negative Thrive Assessment: Date of Thrive Assessment Date Thrive assessed 08/12/24 08/12/24 10:38 Currently or been in a relationship where the following occur: No concerns reported Const General: no acute distress and alert HENMT Ears: TM's normal bilaterally and EAC's normal Throat: Yes posterior oropharynx normal and Yes tonsils normal (no TP congestion noted) Neck Neck: Yes supple and No lymphadenopathy Thyroid: Thyroid normal Resp Auscultation: clear to auscultation bilaterally, no rales and no wheezes Cardio Rate: regular rate Rhythm: regular rhythm Heart sounds: no murmurs GI Palpation (GI): Soft to palpation and nontender Auscultation: normal bowel sounds General: Yes no CVA tenderness Back/Spine/Pelvis Back: no CVA tenderness Thoracic/Lumbar Spine: No lumbar spinal tenderness Skin Rashes: no rashes Extrem General: Yes no clubbing, cyanosis or edema Results Reviewed Results Reviewed: Laboratory Tests 08/03/24 08/03/24 07:24 07:33 WBC 6.1 Hgb 12.2 Hct 37.4 Plt Count 219 D Sodium 143 Potassium 4.1 Creatinine 0.83 Estimated GFR > 60 Fasting Glucose 181 H Hemoglobin A1c % 7.6 H Calcium 9.5 AST 24 ALT 28 Triglycerides 88 Cholesterol 174 LDL Cholesterol, Calc 100 H HDL Cholesterol 57 Vitamin B12 519 25-OH Vitamin D Total 49.2 TSH 0.41 Ur Specific Partridge 1.025 Urine Protein Trace Urine Glucose (UA) Negative Urine Blood Negative Urine Nitrite Negative Ur Leukocyte Esterase Negative Microalb/Creat Ratio 68.5 H Coding Level of Care Code Est Pt Level 4 (57105) Diagnoses Type 2 diabetes mellitus without complication, without long-term current use of insulin E11.9 Diabetes mellitus type: type 2 Diabetes mellitus [facility] insulin use: without adjunct faculty for medical terminology use Diabetes mellitus complication status: without complication Pure hypercholesterolemia E78.00 Benign essential hypertension I10 Vitamin D deficiency E55.9 Bilateral hearing loss, unspecified hearing loss type H91.93 Hearing loss type: unspecified Laterality: bilateral Episode of recurrent major depressive disorder, unspecified depression episode severity F33.9 Depression Type: major depressive disorder Major depression recurrence: recurrent Active/Remission status: currently active Major depression episode severity: unspecified Obesity (BMI 30-39.9) E66.9 Additional Codes PHQ-9 - 84947 - PHQ-9 Billing: Yes ([id number]) Assessment & Plan Assessment & Plan (1) Diabetes mellitus: Code(s): E11.9 - Type 2 diabetes mellitus without complications Category: Medical Qualifiers: Diabetes mellitus type: type 2 Diabetes mellitus [facility] insulin use: without [facility] use Diabetes mellitus complication status: without complication Qualified Code(s): E11.9 - Type 2 diabetes mellitus without complications Plan: Her HgbA1c was at 7.6% on her recent labs done a couple of weekends ago (was previously at 7.7% a few months ago) - goal is < 7.0% Reinforced diabetic diet Continue Metformin ER 500 mg 2 tablets BID and Glimepiride 1 mg QD for now She could not tolerate the 2 mg dose as her blood sugar kept dropping too low on the higher dose She has also not been able to tolerate Tradjenta, Januvia and Pioglitazone in the past due to side effects (2) Pure hypercholesterolemia: Code(s): E78.00 - Pure hypercholesterolemia, unspecified Category: Medical Plan: Results of his labs done a couple of weekends ago reviewed and discussed with patient - she is cautioned that her LDL cholesterol has gone back up again to 100 mg/dl on her recent labs Reinforced low cholesterol diet Continue Atorvastatin 40 mg QD Will recheck her labs and fasting lipids in 4 months for follow up (3) Benign essential hypertension: Code(s): I10 - Essential (primary) hypertension Category: Medical Plan: Reinforced low sodium diet - goal is systolic BP of at least 120 to 130 mm or less Continue Losartan 25 mg QD (4) Vitamin D deficiency: Code(s): E55.9 - Vitamin D deficiency, unspecified Category: Medical Plan: Corrected - her Vitamin D level is normal on her recent labs Patient states that she stopped taking her Vitamin D tablets a few weeks ago as she found out that they were the ones causing her to experience increased hot flashes lately - states that her symptoms subsided as soon as she stopped taking her Vitamin D tablets Have advised patient to at least take a Multivitamin tablet with Vitamin D daily for now Will recheck her Vitamin D level in 4 months for follow up (5) Hearing impairment: Code(s): H91.90 - Unspecified hearing loss, unspecified ear Category: Medical Qualifiers: Hearing loss type: unspecified Laterality: bilateral Qualified Code(s): H91.93 - Unspecified hearing loss, bilateral Plan: She has previously been referred for hearing evaluation [facility] (6) Depression: Code(s): F32.9 - Major depressive disorder, single episode, unspecified Category: Medical Qualifiers: Depression Type: major depressive disorder Major depression recurrence: recurrent Active/Remission status: currently active Major depression episode severity: unspecified Qualified Code(s): F33.9 - Major depressive disorder, recurrent, unspecified Plan: Continue Sertraline 100 mg QD - Rx refilled Follow-up with Psychiatry as scheduled -? she was seeing her therapist via telehealth visits before and was advised that as she has been stable on her medication for years, she can just see her therapist only as needed from now on and can continue to just get her Rx refilled by her PCP (7) Obesity (BMI 30-39.9): Code(s): E66.9 - Obesity, unspecified Category: Medical Plan: Reinforced diet/exercise as tolerated/lose weight - patient is aware that she has gained some weight recently and plans to go back on her previous diet and try to lose weight again after the holidays Plan Follow up in 4 months Orders: Orders Hemoglobin A1c 4 Months E11.9 - Type 2 diabetes mellitus without complications Complete Blood Count Auto Diff 4 Months D64.9 - Anemia, unspecified Microalbumin, Random (w Creat) 4 Months E11.9 - Type 2 diabetes mellitus without complications TSH reflex Free T4 4 Months E78.00 - Pure hypercholesterolemia, unspecified Vitamin D 25-OH Total 4 Months E55.9 - Vitamin D deficiency, unspecified Lipid Panel 4 Months E78.00 - Pure hypercholesterolemia, unspecified Comprehensive Laura. Panel Fast 4 Months E78.00 - Pure hypercholesterolemia, unspecified UA CC w/rflx Micro + Cult 4 Months R30.0 - Dysuria Medications: Refilled atorvastatin 40 mg PO BEDTIME 90 days 90 caps 1RF sertraline 100 mg PO DAILY 90 days 90 tabs 1RF
== END 2024-08-12 11:25 | disposition home or self-care (01) ==
PROVIDERS: PCP Internal Medicine; Visit Provider Internal Medicine
DX: E11.9 Type 2 diabetes mellitus without complications (principal); F33.9 Major depressive disorder, recurrent, unspecified; E66.9 Obesity, unspecified; Z68.33 Body mass index [BMI] 33.0-33.9, adult; E78.00 Pure hypercholesterolemia, unspecified; I10 Essential (primary) hypertension; E55.9 Vitamin D deficiency, unspecified; H91.93 Unspecified hearing loss, bilateral

== ENCOUNTER → 2024-08-12 10:32 | Outpatient (BNVA) | payer OTHER, SELFPAY | PROVIDERS: PCP Internal Medicine; Visit Provider Internal Medicine | DX: E11.9 Type 2 diabetes mellitus without complications (principal); E78.00 Pure hypercholesterolemia, unspecified; I10 Essential (primary) hypertension; E55.9 Vitamin D deficiency, unspecified; H91.93 Unspecified hearing loss, bilateral; F33.9 Major depressive disorder, recurrent, unspecified; E66.9 Obesity, unspecified; Z68.33 Body mass index [BMI] 33.0-33.9, adult; Z79.84 Long term (current) use of oral hypoglycemic drugs; Z79.899 Other long term (current) drug therapy | CPT/HCPCS: 96127 ==

== ENCOUNTER 2024-11-20 08:06 | Outpatient (REF) | payer OTHER, SELFPAY ==
--- OUTSIDE RECORDS SUMMARY | 2024-11-20 08:12 | XMS_ITS | Clinical Summary ---
Author Organization [employer] Address [address] [place] [address] [address] [place] [address] Care Team Providers Care Logistics Assistant Name Role Phone Unavailable Primary Care Provider Unavailabl e Immunizations Name Administration Dates Next Due Influenza Injectable Quadriv alant Preservative Free IIV4 MDCK 05/26/2023,05/18/2019 Influenza injectable quadriv alent IIV4 with preservative 07/23/2018 Influenza injectable quadriv alent preservative free 05/21/2022,05/13/2021,05/14/2020 Pfizer Covid-19 Vaccine 12+ 05/31/2023,1 ,12/22/2020,2020,09/13/2020,08/23/2020 Pfizer Covid-19 Vaccine 12+ Bivalent 08/30/2022 Pfizer Covid-19 Vaccine 12+ nesha-sucrose (Toribio Cap) 12/22/2021 Td (adult), 5 Lf tetanus tox oid, preservative free, adsorbed 04/14/2016 Social History Tobacco Use Types Packs/Day Years Used Date Smoking Tobacco: Never Assessed Comments Unknown Sex and Gender Information Value Date Recorded Sex Assigned at Choose not to disclose 1:48 PM EDT Legal Sex Female 12:16 PM EST Gender Identity Female 05/31/2023 1:48 PM EDT Sexual Orientation Don't know 05/31/2023 1: 48 PM EDT Plan of Treatment Health Maintenance Due Date Last Done Comments CT Colonography 1962 Colonoscopy 1962 Colorectal Cancer Screening 1962 Depression Screening 1962 FIT DNA/Cologuard 1962 FIT 1962 FOBT 1962 HIV Screening 1962 Lipid Panel 1962 SDOH Screening 1962 Sigmoidoscopy 1962 Alcohol/Substance Use Screening 1974 Tobacco Screening 1974 Hepatitis C Screening 1980 Pap Smear 12/29/1983 Cervical Cancer Screening 1992 HPV/Cotest 1992 Mammogram 2002 Pneumococcal Vaccine: 50+ Years (1 of 1 - PCV) 2012 Zoster Vaccines (1 of 2) 2012 DTaP/Tdap/Td Vaccines (1 - Tdap) 04/15/2016 04/14/2016 COVID-19 Vaccine ( season) 2024 05/31/2023, 08/30/2022, 12/22/2021, Additional history exists Influenza Vaccine (#1) 2024 , 05/21/2022, 05/13/2021, Additional history exists RSV Patients and Patients Aged 60 years or older (1 - 1-dose 75+ series) 2037 HIB Vaccines Aged Out No longer eligi ble based on patient's age to complete this topic HPV Vaccines Aged Out No longer eligi ble based on patient's age to complete this topic Hepatitis A Vaccines Aged Out No long er eligible based on patient's age to complete this topic Hepatitis B Vaccines Aged Out No long er eligible based on patient's age to complete this topic IPV Vaccines Aged Out No longer eligi ble based on patient's age to complete this topic Meningococcal Vaccine Aged Out No reed mayuri eligible based on patient's age to complete this topic RSV under 20 months Aged Out No longe r eligible based on patient's age to complete this topic Rotavirus Vaccines Aged Out No longer eligible based on patient's age to complete this topic Insurance [facility] , [address] [place] [address]
== END 2024-11-20 08:07 | disposition home or self-care (01) ==
LOC: HO.MAMMO 08:06
PROVIDERS: PCP Internal Medicine; Visit Provider Internal Medicine
DX: Z12.31 Encounter for screening mammogram for malignant neoplasm of breast (principal)
CPT/HCPCS: 77063; 77067

== ENCOUNTER → 2024-11-20 08:30 | Outpatient (BNV) | payer OTHER, SELFPAY | PROVIDERS: PCP Internal Medicine; Visit Provider Internal Medicine | DX: Z12.31 Encounter for screening mammogram for malignant neoplasm of breast (principal) | CPT/HCPCS: 77063; 77067 ==

== ENCOUNTER 2024-12-05 08:21 | Outpatient (REF) | payer OTHER, SELFPAY ==
--- OUTSIDE RECORDS SUMMARY | 2024-12-05 08:41 | XMS_ITS | Clinical Summary ---
Author Organization [employer] Address [address] [place] [address] [address] [place] [address] Care Team Providers Care Blood Bank Specialist Name Role Phone Unavailable Primary Care Provider [...] patient's age to complete this topic Insurance [facility] , [address] [place] [address]
[2024-12-05 08:45] LABS: MANUAL DIFF FLAG NO
[2024-12-05 09:41] LABS: Basophils Percent Auto 0.3 % (0-2); Eosinophils Absolute Auto 0.1 X10*3/uL (0.0-0.4); Eosinophils Percent Auto 1.8 % (0-4); Hematocrit 37.2 % (37.0-47.0); Imm Gran Abs Auto 0.02 X10*3/uL (0.00-0.03); Imm Gran Pct Auto 0.3 % (0.0-0.4); Lymphocytes Absolute Auto 1.7 X10*3/uL (1.2-4.9); Lymphocytes Percent Auto 28.3 % (20-40); Mean Corpuscular HGB Conc 32.3 g/dl (31.0-35.0); Mean Corpuscular Volume 80.7 fL (80.0-98.0); Mean Platelet Volume 10.2 fL (9.4-12.3); Monocytes Absolute Auto 0.4 X10*3/uL (0.1-1.2); Monocytes Percent Auto 6.8 % (2-11); Neutrophils Absolute Auto 3.7 x10*3/uL (2.0-8.3); Neutrophils Percent Auto 62.5 % (45-73); Platelet Count 224 X10*3/uL (160-400); Red Blood Count 4.61 X10*6/uL (4.20-5.50); Red Cell Distribution Width 13.1 % (11.0-16.0)
[2024-12-05 09:48] LABS: Appearance Urine Clear; Color Urine Yellow; Glucose Urine UA Negative (Negative); Leukocyte Esterase Urine Negative (Negative); Nitrite Urine Negative (Negative); Specific Gravity - Urine 1.025 (1.005-1.025); Urine Blood Negative (Negative); Urine Ketones Negative (Negative); Urine Protein Trace mg/dL (Neg-Trace)
[2024-12-05 09:50] LABS: Estimated Average Glucose 163 mg/dL; Hemoglobin A1C 177.8847 umol/L; Hemoglobin A1c % 7.3 % (<6.0); Total Hemoglobin (HGBA1C) 3184.2202 umol/L
[2024-12-05 10:11] LABS: Creatinine Urine 155.28 mg/dL; Microalbum/Creatinine Ratio Ur 55.3 ug/mg cr (<30)
[2024-12-05 10:35] LABS: Alanine Aminotransferase 26 U/L (0-31); Albumin Level 4.4 g/dL (3.5-5.0); Alkaline Phosphatase 87 U/L (39-117); Anion Gap 13 (12-20); Aspartate Amino Transferase 23 U/L (5-31); Bilirubin Total 0.4 mg/dL (0.0-1.0); Blood Urea Nitrogen 16 mg/dL (9-16); Calcium 9.8 mg/dL (8.4-10.2); Carbon Dioxide 27 mmol/L (22-29); Chloride 105 mmol/L (96-108); Cholesterol 181 mg/dL (<200); Estimated Glomerular Filt Rate > 60; Glucose Fasting 141 mg/dL (60-99); HDL Cholesterol 58 mg/dL (>40); LDL Cholesterol Calculated 101 mg/dL (<100); Potassium 4.1 mmol/L (3.3-5.1); Sodium 141 mmol/L (135-145); Triglycerides 112 mg/dL (<150)
[2024-12-05 10:37] LABS: TSH reflex Free T4 0.33 uIU/mL (0.32-4.0)
== END 2024-12-05 08:22 | disposition home or self-care (01) ==
LOC: HO.LAB 08:21
PROVIDERS: PCP Internal Medicine; Visit Provider Internal Medicine
DX: E11.9 Type 2 diabetes mellitus without complications (principal); R30.0 Dysuria; E78.00 Pure hypercholesterolemia, unspecified; E55.9 Vitamin D deficiency, unspecified; D64.9 Anemia, unspecified
CPT/HCPCS: 36415; 80053; 80061; 81003; 82043; 82306; 82570; 83036; 84443; 85025

== ENCOUNTER 2024-12-05 08:56 | Outpatient (AMB) | payer OTHER, SELFPAY ==
--- NOTE | 2024-12-05 09:07 | MHC.OFFVIS ---
Vital Signs 12/05/24 09:10 Height 5 ft 5 in Weight 199 lb BMI 33.1 BP 197/88 H Blood Pressure Location Lt brachial Position Sitting Pulse 88 Intake Visit Reasons: colonoscopy screening Intake Note: Patient is seen in office for colonoscopy screening. Pt c/o: 2014 was the last colonoscopy (normal) denies n/v/d/c, blood in stool, no concerns Excavating Machine Operator Required: No Accompanied by: Self / Same As Patient Allergies lisinopril Allergy (Unknown, Verified 12/05/24 09:08) severe coughing linagliptin [From Tradjenta] Adverse Reaction (Severe, Verified 12/05/24 09:08) hives/blisters, chest pains, diarrhea sitagliptin [From Januvia] Adverse Reaction (Intermediate, Verified 12/05/24 09:08) hypoglemia pioglitazone Adverse Reaction (Intermediate, Uncoded 12/05/24 09:08) upset stomach Medication List - Last Reconciled 12/05/24 by Ernesto Toledo MD atorvastatin 40 mg PO BEDTIME 90 days glimepiride 1 mg PO QAM 90 days losartan 25 mg PO DAILY 90 days metformin ER 1,000 mg (2 x 500 mg) PO BID 90 days sertraline 100 mg PO DAILY 90 days HPI HPI colonoscopy screening: Details: [age] year old female referred for screening colonoscopy. She denies GI complaints. She denies any family history of colon cancer. Review of her records show that her last colonoscopy was in [address] Pryor and this was unremarkable. She is a known diabetic. She says that her blood sugars can sometimes be not well controlled. She is on glimepiride and metformin. [facility] Medical History Colon cancer screening Vitamin D deficiency Lichen sclerosus Obesity (BMI 30-39.9) Depression Primary osteoarthritis of knee Pure hypercholesterolemia Benign essential hypertension Diabetes mellitus Surgical History Hx of colonoscopy (2014) History of laparoscopic cholecystectomy Family History Father Diabetes Mother Hypertension Diabetes Social History Housing: Apartment Alcohol intake: never Patient Tobacco Use Status: Never used Tobacco e-Cigarette/Vaping Use: Never Used Second Hand Smoke Exposure: No service: No Current occupational status: employed Cognitive needs: No Hearing needs: No Vision needs: Yes Female Reproductive History Menstrual Age of Menarche: 15 Review of Systems Const Denies chills and Denies fever(s) Card Denies chest pain, Denies dyspnea and Denies dyspnea on exertion Resp Denies cough, Denies dyspnea and Denies dyspnea on exertion GI Denies hematochezia and Denies change in bowel habits Denies hematuria Musc Denies back pain and Denies limited range of motion Neuro Denies focal weakness and Denies convulsions Psych Denies depression and Denies mood swings Physical Exam Vital Signs: Last Vital Signs Pulse 88 12/05/24 09:10 BP 197/88 H 12/05/24 09:10 BMI result Body Mass Index 33.1 Const General: comfortable and no acute distress Orientation/consciousness: patient oriented x3 Neck Neck: Yes no lymphadenopathy Resp Auscultation: clear to auscultation bilaterally Cardio Rhythm: regular rhythm GI Palpation (GI): Soft to palpation, nontender and no guarding Neuro General: patient oriented x3 Assessment & Plan Assessment & Plan (1) Colon cancer screening: Code(s): Z12.11 - Encounter for screening for malignant neoplasm of colon Category: Medical Plan: I explained to her the technique of colonoscopy for screening. I reviewed the risks including but not limited to bleeding and perforation, as well as the benefits and alternatives. She understands and wants to proceed. Coding Level of Care Code New Pt Level 3 (09784) Diagnoses Colon cancer screening Z12.11
[2024-12-05 09:10] VITALS: BP 197/88; PULSE 88; BMI 33.1
--- OUTSIDE RECORDS SUMMARY | 2024-12-05 09:34 | XMS_ITS | Clinical Summary ---
Author Organization [employer] Address [address] [place] [address] [address] [place] [address] Care Team Providers Care Material Planner Name Role Phone Unavailable Primary Care Provider [...] patient's age to complete this topic Insurance [facility] , [address] [place] [address]
== END 2024-12-05 09:28 | disposition home or self-care (01) ==
LOC: HO.HGS 08:57
PROVIDERS: PCP Internal Medicine; Visit Provider Surgery
DX: Z12.11 Encounter for screening for malignant neoplasm of colon (principal)
CPT/HCPCS: 99203

== ENCOUNTER 2024-12-12 09:10 | Outpatient (AMB) | payer OTHER, SELFPAY ==
--- OUTSIDE RECORDS SUMMARY | 2024-12-12 09:54 | XMS_ITS | Clinical Summary ---
Author Organization [employer] Address [address] [place] [address] [address] [place] [address] Care Team Providers Care Senior Water/Wastewater Engineer Name Role Phone Unavailable Primary Care Provider [...] patient's age to complete this topic Insurance [facility] , [address] [place] [address]
[2024-12-12 09:57] VITALS: BP 152/84; PULSE 82; TEMP 36.2; O2SAT 96; BMI 33.2
--- NOTE | 2024-12-12 09:57 | MHC.PC.OV ---
Vital Signs 12/12/24 09:57 Height 5 ft 5 in Weight 199 lb 4 oz BMI 33.2 BP 152/84 H Blood Pressure Location Lt brachial Position Sitting Pulse 82 Pulse Source Pulse Oximeter Temp 97.1 F Temp Source Temporal Artery Scan Pulse Oximetry (%) 96 Oxygen Delivery Method Room Air Comment Cup of [place] espresso Intake Visit Reasons: 4mth f/u Financial Health Counselor Required: No Accompanied by: Self / Same As Patient Allergies lisinopril Allergy (Unknown, Verified 12/12/24 11:03) severe coughing linagliptin [From Tradjenta] Adverse Reaction (Severe, Verified 12/12/24 11:03) hives/blisters, chest pains, diarrhea sitagliptin [From Januvia] Adverse Reaction (Intermediate, Verified 12/12/24 11:03) hypoglemia pioglitazone Adverse Reaction (Intermediate, Uncoded 12/12/24 11:03) upset stomach Medication List - Last Reconciled 12/12/24 by Herson Healy MD atorvastatin 40 mg PO BEDTIME 90 days glimepiride 1 mg PO QAM 90 days losartan 25 mg PO DAILY 90 days metformin ER 1,000 mg (2 x 500 mg) PO BID 90 days sertraline 100 mg PO DAILY 90 days sodium,potassium,mag sulfates 17.5-3.13-1.6 gram (Suprep Bowel Prep Kit) DILUTE; drink full amount early evening before AND next morning at least 2 hr before procedure; follow w 960 mL water PO Tobacco use date assessed: 12/12/24 Dental Screening Dental Screen Date: 12/12/24 Did you have a dental visit in the last 12 months?: No Did you have a dental problem in the last 6 months where you did not have access to dental care?: No Was dental information given to patient?: No (dentures) HPI 4mth f/u HPI Details Patient comes in today for her follow up visit for her HTN, DM, hyperlipidemia States that she has noticed that every time she tries to watch her diet to lose weight - her blood sugar drops to <90 mg/dl and she will start to feel very shaky States that she feels okay otherwise She denies any headaches or dizziness Denies any chest pains, no SOB No nausea/vomiting, no abdominal pain No change in bowel habits noted She needs several of her Rx refilled She had follow up labs done last week - to discuss her results She is scheduled for her colonoscopy at the end of the month (December 2024) [facility] Medical History Colon cancer screening Vitamin D deficiency Lichen sclerosus Obesity (BMI 30-39.9) Depression Primary osteoarthritis of knee Pure hypercholesterolemia Benign essential hypertension Diabetes mellitus Surgical History Hx of colonoscopy (2014) History of laparoscopic cholecystectomy Family History Father Diabetes Mother Hypertension Diabetes Social History Housing: Apartment Alcohol intake: never Patient Tobacco Use Status: Never used Tobacco e-Cigarette/Vaping Use: Never Used Second Hand Smoke Exposure: No service: No Current occupational status: employed Cognitive needs: No Hearing needs: No Vision needs: Yes Female Reproductive History Menstrual Age of Menarche: 15 Questionnaire PHQ-9 Over the last 2 weeks, how often have you been bothered by any of the following problems? 1. Little interest or pleasure in doing things: not at all 2. Feeling down, depressed, or hopeless: not at all 3. Trouble falling or staying asleep, or sleeping too much: not at all 4. Feeling tired or having little energy: not at all 5. Poor appetite or overeating: not at all 6. Feeling bad about yourself - or that you are a failure or have let yourself or your family down: not at all 7. Trouble concentrating on things, such as reading the newspaper or watching television: not at all 8. Moving or speaking so slowly that other people could have noticed. Or the opposite - being so fidgety or restless that you have been moving around a lot more than usual: not at all 9. Thoughts that you would be better off or of hurting yourself in some way: not at all Total score: 0 Depression Screening Interpretation: Negative Depression Screening Done: Yes 49191 - PHQ-9 Billing: Yes Source: Developed by Drs. León Lawton, Charmaine Humphries, Yefri Laird and colleagues, with an educational fitz from [employer]. Thrive Questionnaire Date Thrive assessed: 12/12/24 I am a: Patient What is your living situation today?: I have a steady place to live Within the past 12 months, did the food you bought not last and you didn't have the money to get more?: Never true Within the past 12 months, did you worry whether your food would run out before you got money to buy more?: Never true Do you have trouble paying for medicines?: No Do you have trouble getting transportation to medical appointments?: No Do you have trouble paying your heating and electricity bill?: No Do you have trouble taking care of your child, family member or friend?: No Do you have trouble with day-to-day activities such as bathing, preparing meals, shopping, managing finances, etc.?: No Are you currently unemployed and looking for a job?: No Are you interested in more education?: No Please select the resources that you would like help with: None Currently or been in a relationship where the following occur: I choose not to answer THRIVE Score: 0 AUDIT C Alcohol Use Questionnaire (AUDIT-C) 1. How often do you have a drink containing alcohol?: Never 3. How often do you have six or more drinks on one occasion?: Never Total Score: 0 Score Reviewed/Action Taken: Yes TAMANNA-7 AMB Questionnaire TAMANNA-7 Date TAMANNA - 7 assessed: 12/12/24 Feeling nervous, anxious, or on edge: 0 = Not at all Not being able to stop or control worryin = Not at all Worrying too much about different things: 0 = Not at all Trouble relaxin = Not at all Being so restless that it is hard to sit still: 0 = Not at all Becoming easily annoyed or irritable: 0 = Not at all Feeling afraid as if something awful might happen: 0 = Not at all Total TAMANNA-7 score (0-4 normal; 5-9 mild; 10-14 moderate; 15-21 severe): 0 Source: Developed by Drs. León Lawton, Charmaine Humphries, Yefri Laird and colleagues, with an educational fitz from [employer]. TAMANNA-7 Assessment Billing TAMANNA-7 Assessment Tool: TAMANNA-7 Assessment 26807 Review of Systems Const Denies chills, Denies fatigue, Denies fever(s) and Denies headache(s) ENT Denies dysphagia, Denies dizziness, Denies otalgia, Denies headache(s), Reports hearing loss (in both ears), Denies neck pain, Denies odynophagia and Denies sore throat Card Denies chest pain, Denies palpitations and Denies dyspnea Resp Denies chest congestion, Denies cough and Denies dyspnea GI Denies abdominal pain, Denies constipation, Denies dysphagia, Denies heartburn, Denies diarrhea, Denies nausea, Denies odynophagia and Denies vomiting Denies difficulty voiding, Denies nocturia, Denies dysuria and Denies urinary urgency Musc Denies back pain, Denies arthralgias and Denies neck pain Skin/Breast Denies rash Neuro Denies dizziness and Denies headache(s) Endo Denies fatigue and Denies palpitations Physical exam (Primary Care) Vital Signs: Last Vital Signs Temp 97.1 F 12/12/24 09:57 Pulse 82 12/12/24 09:57 BP 152/84 H 12/12/24 09:57 Pulse Ox 96 12/12/24 09:57 Oxygen Delivery Method Room Air 12/12/24 09:57 BMI result Body Mass Index 33.2 Tobacco/Smoking Status: Tobacco use Status Tobacco use date assessed 12/12/24 12/12/24 10:05 Patient Tobacco Use Status Never used Tobacco 12/12/24 10:05 e-Cigarette/Vaping Use Never Used 12/12/24 10:05 PHQ-9: PHQ-9 Score PHQ-9: Total score 0 12/12/24 11:05 Depression Screening Interpretation: Negative Thrive Assessment: Date of Thrive Assessment Date Thrive assessed 12/12/24 12/12/24 10:05 Currently or been in a relationship where the following occur: I choose not to answer Const General: no acute distress and alert HENMT Ears: TM's normal bilaterally and EAC's normal Throat: Yes posterior oropharynx normal and Yes tonsils normal (no TP congestion noted) Neck Neck: Yes supple and No lymphadenopathy Thyroid: Thyroid normal Resp Auscultation: clear to auscultation bilaterally, no rales and no wheezes Cardio Rate: regular rate Rhythm: regular rhythm Heart sounds: no murmurs GI Palpation (GI): Soft to palpation and nontender Auscultation: normal bowel sounds General: Yes no CVA tenderness Back/Spine/Pelvis Back: no CVA tenderness Thoracic/Lumbar Spine: No lumbar spinal tenderness Skin Rashes: no rashes Extrem General: Yes no clubbing, cyanosis or edema Results Reviewed Results Reviewed: Laboratory Tests 12/05/24 12/05/24 08:36 08:43 WBC 6.0 Hgb 12.0 Hct 37.2 Plt Count 224 Sodium 141 Potassium 4.1 Creatinine 0.76 Estimated GFR > 60 Fasting Glucose 141 H Hemoglobin A1c % 7.3 H Calcium 9.8 AST 23 ALT 26 Triglycerides 112 Cholesterol 181 LDL Cholesterol, Calc 101 H HDL Cholesterol 58 25-OH Vitamin D Total 50.0 TSH 0.33 Ur Specific [place] 1.025 Urine Protein Trace Urine Glucose (UA) Negative Urine Blood Negative Urine Nitrite Negative Ur Leukocyte Esterase Negative Microalb/Creat Ratio 55.3 H Coding Level of Care Code Est Pt Level 4 (91413) Complex EM visit Add On G2211 Diagnoses Type 2 diabetes mellitus without complication, without long-term current use of insulin E11.9 Diabetes mellitus type: type 2 Diabetes mellitus skilled nursing insulin use: without skilled nursing use Diabetes mellitus complication status: without complication Pure hypercholesterolemia E78.00 Benign essential hypertension I10 Vitamin D deficiency E55.9 Bilateral hearing loss, unspecified hearing loss type H91.93 Hearing loss type: unspecified Laterality: bilateral Episode of recurrent major depressive disorder, unspecified depression episode severity F33.9 Depression Type: major depressive disorder Major depression recurrence: recurrent Active/Remission status: currently active Major depression episode severity: unspecified Obesity (BMI 30-39.9) E66.9 Additional Codes TAMANNA-7 Assessment Billing - TAMANNA-7 Assessment Tool: TAMANNA-7 Assessment [id number] ([id number]) PHQ-9 - 89764 - PHQ-9 Billing: Yes ([id number]) Assessment & Plan Assessment & Plan (1) Diabetes mellitus: Code(s): E11.9 - Type 2 diabetes mellitus without complications Category: Medical Qualifiers: Diabetes mellitus type: type 2 Diabetes mellitus skilled nursing insulin use: without skilled nursing use Diabetes mellitus complication status: without complication Qualified Code(s): E11.9 - Type 2 diabetes mellitus without complications Plan: Her HgbA1c was at 7.3% on her recent labs done last week (was previously at 7.6% a few months ago) - goal is ideally < 7.0% but in this patient who has been a diabetic for years and has been experiencing hypoglycemic symptoms when she started dieting recently, will have her at <7.5% as her target goal for now Reinforced diabetic diet Continue Metformin ER 500 mg 2 tablets BID and Glimepiride 1 mg QD for now (patient could not tolerate the 2 mg dose as her blood sugar kept dropping too low on the higher dose) She has also not been able to tolerate Tradjenta, Januvia and Pioglitazone in the past due to side effects Have advised her to wait until she has her colonoscopy done at the end of the month before trying to diet again to lose weight and if she starts doing so, she is instructed to HOLD her Glimepiride 1 mg to help prevent her from experiencing any hypoglycemic episodes (2) Pure hypercholesterolemia: Code(s): E78.00 - Pure hypercholesterolemia, unspecified Category: Medical Plan: Results of her labs done last week reviewed and discussed with patient - her LDL cholesterol is still at 101 mg/dl, which is mostly unchanged from previous Reinforced low cholesterol diet Continue Atorvastatin 40 mg QD but advised that if her LDL cholesterol does not improve further over the next few months, may consider increasing her Atorvastatin dose Will recheck her labs and fasting lipids in 4 months for follow up (3) Benign essential hypertension: Code(s): I10 - Essential (primary) hypertension Category: Medical Plan: Reinforced low sodium diet - goal is systolic BP of at least 120 to 130 mm or less Continue Losartan 25 mg QD (4) Vitamin D deficiency: Code(s): E55.9 - Vitamin D deficiency, unspecified Category: Medical Plan: Corrected - her Vitamin D level is normal on her recent labs Patient states that she stopped taking her Vitamin D tablets a few months ago as she found out that they were the ones causing her to experience increased hot flashes lately - states that her symptoms subsided as soon as she stopped taking her Vitamin D tablets Have advised patient to just take a Multivitamin tablet with Vitamin D daily for now Will recheck her Vitamin D level in 4 months for follow up (5) Hearing impairment: Code(s): H91.90 - Unspecified hearing loss, unspecified ear Category: Medical Qualifiers: Hearing loss type: unspecified Laterality: bilateral Qualified Code(s): H91.93 - Unspecified hearing loss, bilateral Plan: She has previously been referred for hearing evaluation [facility] (6) Depression: Code(s): F32.9 - Major depressive disorder, single episode, unspecified Category: Medical Qualifiers: Depression Type: major depressive disorder Major depression recurrence: recurrent Active/Remission status: currently active Major depression episode severity: unspecified Qualified Code(s): F33.9 - Major depressive disorder, recurrent, unspecified Plan: Continue Sertraline 100 mg QD Follow-up with Psychiatry as scheduled -? she was seeing her therapist via telehealth visits before and was advised that as she has been stable on her medication for years, she can just see her therapist only as needed from now on and can continue to just get her Rx refilled by her PCP (7) Obesity (BMI 30-39.9): Code(s): E66.9 - Obesity, unspecified Category: Medical Plan: Reinforced diet/exercise as tolerated/lose weight Plan Follow up in 4 months Orders: Orders Complete Blood Count Auto Diff 4 Months D64.9 - Anemia, unspecified Lipid Panel 4 Months E78.00 - Pure hypercholesterolemia, unspecified Microalbumin, Random (w Creat) 4 Months E11.9 - Type 2 diabetes mellitus without complications TSH reflex Free T4 4 Months E78.00 - Pure hypercholesterolemia, unspecified UA CC w/rflx Micro + Cult 4 Months R30.0 - Dysuria Vitamin D 25-OH Total 4 Months E55.9 - Vitamin D deficiency, unspecified Comprehensive [place]. Panel Fast 4 Months E78.00 - Pure hypercholesterolemia, unspecified Hemoglobin A1c 4 Months E11.9 - Type 2 diabetes mellitus without complications Medications: Refilled atorvastatin 40 mg PO BEDTIME 90 days 90 caps 1RF glimepiride administer with breakfast 1 mg PO QAM 90 days 90 tabs 1RF losartan 25 mg PO DAILY 90 days 90 tabs 1RF sertraline 100 mg PO DAILY 90 days 90 tabs 1RF
== END 2024-12-12 11:14 | disposition home or self-care (01) ==
LOC: HO.HMCH 09:11
PROVIDERS: PCP Internal Medicine; Visit Provider Internal Medicine
DX: E11.9 Type 2 diabetes mellitus without complications (principal); E78.00 Pure hypercholesterolemia, unspecified; Z68.33 Body mass index [BMI] 33.0-33.9, adult; E66.9 Obesity, unspecified; I10 Essential (primary) hypertension; E55.9 Vitamin D deficiency, unspecified; H91.93 Unspecified hearing loss, bilateral; F33.9 Major depressive disorder, recurrent, unspecified

== ENCOUNTER → 2024-12-12 09:10 | Outpatient (BNVA) | payer OTHER, SELFPAY | PROVIDERS: PCP Internal Medicine; Visit Provider Internal Medicine | DX: E11.9 Type 2 diabetes mellitus without complications (principal); E78.00 Pure hypercholesterolemia, unspecified; I10 Essential (primary) hypertension; E55.9 Vitamin D deficiency, unspecified; H91.93 Unspecified hearing loss, bilateral; F33.9 Major depressive disorder, recurrent, unspecified; E66.9 Obesity, unspecified; Z68.33 Body mass index [BMI] 33.0-33.9, adult; Z79.84 Long term (current) use of oral hypoglycemic drugs; Z79.899 Other long term (current) drug therapy | CPT/HCPCS: 96127 ==

== ENCOUNTER 2025-01-10 07:52 | Day surgery (SDC) | payer OTHER, SELFPAY ==
--- OUTSIDE RECORDS SUMMARY | 2024-12-06 13:25 | XMS_ITS | Clinical Summary ---
Author Organization [employer] Address [address] [place] [address] [address] [place] [address] Care Team Providers Care Aircraft Fueler Name Role Phone Unavailable Primary Care Provider [...] patient's age to complete this topic Insurance [facility] , [address] [place] [address]
[2025-01-08 11:09] VITALS: BMI 33.1
[2025-01-10 08:06] VITALS: BMI 33.0
[2025-01-10 08:11] VITALS: BP 158/78; PULSE 76; RESP 16; TEMP 36.2; O2SAT 97
[2025-01-10 08:19] LABS: Glucose, Whole Blood 187 mg/dL (60-115)
[2025-01-10] MEDS: Lactated Ringers 1,000 ML 100 ML IVCONT (08:23)
--- NOTE | 2025-01-10 08:48 | HO.ANESPROP2 ---
Documented by User: Zeinab Nolen NP 01/09/25 09:39 HPI - Anesthesia Eval Consult details Narrative: 64yo F for Colonoscopy, possible polypectomy PMFSH Active Problems Active Problems: All Active Problems Colon cancer screening (Acute) Vitamin D deficiency (Acute) Hearing impairment (Acute) Right knee pain (Acute) Lichen sclerosus (Acute) Left knee pain (Acute) Well woman exam (Acute) Obesity (BMI 30-39.9) (Acute) Depression (Acute) Primary osteoarthritis of knee (Acute) Pure hypercholesterolemia (Acute) Benign essential hypertension (Acute) Diabetes mellitus (Acute) Past Medical History Medical History Colon cancer screening Vitamin D deficiency Lichen sclerosus Obesity (BMI 30-39.9) Depression Primary osteoarthritis of knee Pure hypercholesterolemia Benign essential hypertension Diabetes mellitus Family History Family History Father Diabetes Mother Hypertension Diabetes Surgical History Surgical History Hx of colonoscopy (2014) History of laparoscopic cholecystectomy Social History Social History Housing: Apartment Alcohol intake: never Patient Tobacco Use Status: Never used Tobacco e-Cigarette/Vaping Use: Never Used Second Hand Smoke Exposure: No Use of substances other than those prescribed or required for medical reasons: No Are you DNR?: No Advance Directives: No Advance Directives Information Provided: Yes Patient : No : No Poor oral hygiene: No service: No Current occupational status: employed Cognitive needs: No Hearing needs: No Vision needs: Yes Meds Allergies Allergy/AdvReac Type Severity Reaction Status Date / Time lisinopril Allergy Unknown severe Verified 12/12/24 11:03 coughing linagliptin [From Tradjenta] AdvReac Severe hives/blisters, Verified 12/12/24 11:03 chest pains, diarrhea sitagliptin [From Januvia] AdvReac Intermediate hypoglemia Verified 12/12/24 11:03 pioglitazone AdvReac Intermediate upset Uncoded 12/12/24 11:03 stomach Exam Height,Weight and Vital Signs: Height 5 ft 5 in Weight 90.265 kg Assessment and Plan Assessment Anesthesia Assessment: Chart Reviewed Documented by User: Mandy Ledbetter DO 01/10/25 08:50 PMFSH Past Medical History Medical History Colon cancer screening Vitamin D deficiency Lichen sclerosus Obesity (BMI 30-39.9) Depression Primary osteoarthritis of knee Pure hypercholesterolemia Benign essential hypertension Diabetes mellitus Family History Family History Father Diabetes Mother Hypertension Diabetes Family history of problems with anesthesia: No Surgical History Surgical History Hx of colonoscopy (2014) History of laparoscopic cholecystectomy History of Problems with Anesthesia: No Social History Social History Housing: Apartment Alcohol intake: never Patient Tobacco Use Status: Never used Tobacco e-Cigarette/Vaping Use: Never Used Second Hand Smoke Exposure: No Use of substances other than those prescribed or required for medical reasons: No Are you DNR?: No Advance Directives: No Advance Directives Information Provided: Yes Patient : No : No Poor oral hygiene: No service: No Current occupational status: employed Cognitive needs: No Hearing needs: No Vision needs: Yes Meds Allergies Allergy/AdvReac Type Severity Reaction Status Date / Time lisinopril Allergy Unknown severe Verified 12/12/24 11:03 coughing linagliptin [From Tradjenta] AdvReac Severe hives/blisters, Verified 12/12/24 11:03 chest pains, diarrhea sitagliptin [From Januvia] AdvReac Intermediate hypoglemia Verified 12/12/24 11:03 pioglitazone AdvReac Intermediate upset Uncoded 12/12/24 11:03 stomach Exam Exam Date and Time: 01/10/25 0835 Height,Weight and Vital Signs: Height 5 ft 5 in Weight 90.265 kg Vital Signs Temperature 97.1 F 01/10/25 08:11 Pulse Rate 76 01/10/25 08:11 Respiratory Rate 16 01/10/25 08:11 Blood Pressure 158/78 H 01/10/25 08:11 Pulse Oximetry 97 01/10/25 08:11 Oxygen Delivery Method Room Air 01/10/25 08:11 Temperature 97.1 F 01/10/25 08:11 Pulse Rate 76 01/10/25 08:11 Respiratory Rate 16 01/10/25 08:11 Blood Pressure 158/78 H 01/10/25 08:11 Pulse Oximetry 97 01/10/25 08:11 Oxygen Delivery Method Room Air 01/10/25 08:11 Airway Mallampati Class: II TM Dist: >3cm Neck ROM: Full Denture: Upper and Lower Heart: S1S2 Lungs: CTAB Assessment and Plan Assessment Anesthesia Assessment: Anesthesia Plan Discussed and Chart Reviewed Final Anesthetic Review Family History of Problems with Anesthesia: No History of Problems with Anesthesia: No NPO: Yes ASA Class: II Final Preanesthetic Review: No Changes in Pt Med Stat, Meds/Allgs Chart Reviewed, Consent Obtained/Reviewed and Anes Risks/Benef Reviewed Patient Risk: Low Procedure Risk: Low Anesthetic Plan Anesthetic Plan: MAC: and Agree w/ Assess. and Plan Disposition: Standard PACU
--- NOTE | 2025-01-10 09:03 | MHC.SHP ---
Pre-Procedural Eval Section A - 24 Hr Update-Section A only Date of Service: 01/10/25 Section B - Complete if H&P > 30 days Chief Complaint: screening Details of Present Illness: For screening colonoscopy Relevant Family History (Specify if Yes): No Relevant Social History: None Present Medications: see Short Stay Collaborative assessment Medical History: Significant History (Obesity, depression, arthritis, hypertension, diabetes) Allergies: Allergies Allergy/AdvReac Type Severity Reaction Status Date / Time lisinopril Allergy Unknown severe Verified 12/12/24 11:03 coughing linagliptin [From Tradjenta] AdvReac Severe hives/blisters, Verified 12/12/24 11:03 chest pains, diarrhea sitagliptin [From Januvia] AdvReac Intermediate hypoglemia Verified 12/12/24 11:03 pioglitazone AdvReac Intermediate upset Uncoded 12/12/24 11:03 stomach Review of Systems Sugical H&P ROS: Negative: Constitution, Cardiovascular, Respiratory and Gastrointestinal Exam Surgical H&P Exam: Normal: Heart, Normal: Lungs and Normal: Abdomen Plan Diagnosis/Plan: Unchanged I have reviewed the history and physical and performed a pertinent physical examination on my patient. No changes have occurred unless specified. Time Spent With Patient Time: Total time managing care of this patient today ____ minutes.
--- NOTE | 2025-01-10 09:49 | W.PM.OPN ---
Operative Note Operative Note Date of Service: 01/10/25 Narrative: Preop diagnosis: Colon cancer screening Postop diagnosis: 1. Small polyp, about 2 mm at level 15 cm removed with cold forceps 2. Occasional diverticuli in the left colon, left colon Procedure: Colonoscopy with polypectomy using cold forceps x1 Surgeon: Ernesto Toledo MD The patient is a 64 year female here for screening colonoscopy. She understood the technique of the planned procedure as well as the risks, benefits, and alternatives. The patient was brought to the operating room and placed in left lateral decubitus position under monitored anesthesia care. A surgical time-out was done. A full digital rectal exam was done and this did not reveal any significant anal lesions. The tip of the Olympus colonoscope was gently introduced through the anal orifice advanced with insufflation all the way to the cecum. The cecum was intubated. The cecum was identified by visualization of the ileocecal valve as well as the appendiceal orifice. The cecal mucosa was unremarkable. The scope was gradually withdrawn with careful examination of the entire colonic mucosa being done with scope withdrawal. The patient had adequate bowel prep so it was unlikely that any lesion may have been missed. There was note of a small polyp, about 2 mm at level 15 cm, removed with multiple bites of the cold forceps. There was occasional diverticuli in the left colon. The rectum was reached and there were no lesions seen. The anal canal was unremarkable. The scope was then withdrawn completely with desufflation The patient tolerated procedure well. There were no immediate complications. She falls at average risk for colon cancer so her next colonoscopy may be in the next 10 years.
[2025-01-10 09:51] VITALS: BP 135/77; PULSE 74; RESP 16; TEMP 36.6; O2SAT 99
[2025-01-10 10:06] VITALS: BP 160/90; PULSE 69; RESP 16; TEMP 36.6; O2SAT 98
== END 2025-01-10 11:00 | disposition home or self-care (01) ==
PROVIDERS: PCP Internal Medicine; Visit Provider Surgery
PROC: 0DBE8ZZ Excision of Large Intestine, Via Natural or Artificial Opening Endoscopic (ICD-10-PCS; CPT 45380; principal; 2025-01-10 09:40)
DX: Z12.11 Encounter for screening for malignant neoplasm of colon (principal); K63.5 Polyp of colon; K57.30 Diverticulosis of large intestine without perforation or abscess without bleeding; I10 Essential (primary) hypertension; E78.00 Pure hypercholesterolemia, unspecified; E11.9 Type 2 diabetes mellitus without complications; L90.0 Lichen sclerosus et atrophicus; Z79.84 Long term (current) use of oral hypoglycemic drugs; Z79.899 Other long term (current) drug therapy; Z88.8 Allergy status to other drugs, medicaments and biological substances
CPT/HCPCS: 45380; 82947; 88305; J2704

== ENCOUNTER → 2025-01-10 07:52 | Outpatient (BNV) | payer OTHER, SELFPAY | PROVIDERS: PCP Internal Medicine; Visit Provider Surgery | DX: Z12.11 Encounter for screening for malignant neoplasm of colon (principal); K63.5 Polyp of colon; K57.90 Diverticulosis of intestine, part unspecified, without perforation or abscess without bleeding | CPT/HCPCS: 45380 ==

== ENCOUNTER 2025-01-20 09:00 | Outpatient (AMB) | payer OTHER, SELFPAY ==
--- NOTE | 2025-01-20 09:08 | A.OFFVIS_ITS ---
Vital Signs 01/20/25 09:14 Height 5 ft 5 in Weight 197 lb 4 oz BMI 32.8 BP 187/83 H Blood Pressure Location Lt brachial Position Sitting Pulse 85 Intake Visit Reasons: post colonoscopy Intake Note: Patient is seen in office for post op assessment post colonoscopy. Pt c/o:here for results, no changes Funeral Prearrangement Counselor Required: No Accompanied by: Self / Same As Patient Allergies lisinopril Allergy (Unknown, Verified 01/20/25 09:15) severe coughing linagliptin [From Tradjenta] Adverse Reaction (Severe, Verified 01/20/25 09:15) hives/blisters, chest pains, diarrhea sitagliptin [From Januvia] Adverse Reaction (Intermediate, Verified 01/20/25 09:15) hypoglemia pioglitazone Adverse Reaction (Intermediate, Uncoded 01/20/25 09:15) upset stomach HPI HPI post colonoscopy: Details: Patient doing well. No concerns. She states she is always nervous awaiting results. Otherwise she has been working on losing weight, getting better control of her diabetes. She feels this is going well, feels like she has more energy. [facility] Medical History Colon cancer screening Vitamin D deficiency Lichen sclerosus Obesity (BMI 30-39.9) Depression Primary osteoarthritis of knee Pure hypercholesterolemia Benign essential hypertension Diabetes mellitus Surgical History (Updated 01/20/25 @ 09:10 by Genna Magallon Damaris) Hx of colonoscopy with polypectomy (01/10/25) Hx of colonoscopy (2014) History of laparoscopic cholecystectomy Family History Father Diabetes Mother Hypertension Diabetes Social History Housing: Apartment Alcohol intake: never Patient Tobacco Use Status: Never used Tobacco e-Cigarette/Vaping Use: Never Used Second Hand Smoke Exposure: No service: No Current occupational status: employed Cognitive needs: No Hearing needs: No Vision needs: Yes Female Reproductive History Menstrual Age of Menarche: 15 Review of Systems Const All systems reviewed & are unremarkable except as noted in HPI and below Physical Exam Vital Signs: Last Vital Signs Pulse 85 01/20/25 09:14 BP 187/83 H 01/20/25 09:14 BMI result Body Mass Index 32.8 Const General: comfortable and no acute distress Orientation/consciousness: patient oriented x3 Resp Effort & Inspection: normal respiratory effort and able to speak in complete sentences Neuro General: patient oriented x3 Extrem General: Yes full ROM Assessment & Plan Assessment & Plan (1) Colon cancer screening: Code(s): Z12.11 - Encounter for screening for malignant neoplasm of colon Category: Medical Plan 64-year-old female presenting for follow-up for colonoscopy results. She had a colonoscopy on 01/10/[address] Toledo. Intraoperative findings significant for occasional diverticula and a small 2 mm polyp that was removed and sent for pathology. Pathology results as follows, hyperplastic polyp. I discussed these findings with the patient and reassured that this is not a concerning finding. We discussed Dr. Toledo's recommendations for continuing colorectal cancer screening in 10 years per guidelines. Patient can follow-up as needed sooner with any concerns Coding Level of Care Code Est Pt Level 2 (43112) Diagnoses Colon cancer screening Z12.11
[2025-01-20 09:14] VITALS: BP 187/83; PULSE 85; BMI 32.8
--- OUTSIDE RECORDS SUMMARY | 2025-01-20 09:18 | XMS_ITS | Clinical Summary ---
Author Organization [employer] Address [address] [place] [address] Care Team Providers Care Correspondence Coordinator Name Role Phone Unavailable Primary Care Provider Unavailabl e Immunizations Immunization Administration Dates Next Due Influenza Injectable Quadriv [...] Panel 1962 SDOH Screening 1962 Sigmoidoscopy 1962 Disability Screening 1962 Alcohol/Substance Use Screening 1974 Tobacco Screening 1974 Hepatitis C Screening 1980 Pap Smear 12/29/1983 Cervical Cancer Screening 1992 HPV/Cotest 1992 Mammogram 2002 Pneumococcal Vaccine: 50+ Years (1 of 1 - PCV) 2012 Zoster Vaccines (1 of 2) 2012 DTaP/Tdap/Td Vaccines (1 - Tdap) 04/15/2016 04/14/2016 COVID-19 Vaccine ( season) 2024 05/31/2023, 08/30/2022, 12/22/2021, Additional history exists Influenza Vaccine (Season Ended) 2025 05/26/2023, 05/21/2022, 05/13/2021, Additional history exists RSV Patients [...] patient's age to complete this topic Meningococcal B Vaccine Aged Out No l onger eligible based on patient's age to complete this topic Meningococcal Vaccine Aged Out No reed mayuri eligible based on patient's age to complete this topic RSV under 20 months Aged Out No longe r eligible based on patient's age to complete this topic Rotavirus Vaccines Aged Out No longer eligible based on patient's age to complete this topic Insurance [facility]
== END 2025-01-20 09:22 | disposition home or self-care (01) ==
LOC: HO.HGS 09:01
PROVIDERS: PCP Internal Medicine
DX: Z12.11 Encounter for screening for malignant neoplasm of colon (principal)
CPT/HCPCS: 99212

== ENCOUNTER → 2025-01-20 09:00 | Outpatient (BNVA) | payer OTHER, SELFPAY | PROVIDERS: PCP Internal Medicine ==